=== PATIENT | male | born 1965 | race Caucasian/White ===

== ENCOUNTER 2022-01-06 01:17 | Emergency (ER) | payer OTHER, SELFPAY ==
--- NOTE | ~2022-01-06 | CT_ITS ---
EXAMINATION: CT ABDOMEN AND PELVIS WITHOUT CONTRAST CLINICAL INFORMATION: Left flank pain. History of kidney stones. COMPARISON: 03/06/2019 TECHNIQUE: Multidetector volumetric imaging was performed from the superior aspect of the liver through the pubic symphysis. Sagittal and coronal reformatted images were obtained on the technologist's workstation. This CT examination was performed using dose optimization techniques as appropriate, variously including the following: *Automated exposure control *Adjustment of mA and/or kV according to patient size (this includes techniques or standardized protocols for targeted exams where dose is matched to indication/reason for exam; i.e. extremities or head) *Use of iterative reconstruction technique DLP: 600 mGy-cm FINDINGS: LUNG BASES: The visualized lung bases are unremarkable. LIVER, GALLBLADDER, AND BILIARY TREE: The liver is normal in size, shape, and attenuation. No focal hepatic lesion or biliary ductal dilatation is present. The gallbladder is unremarkable with no evidence of radiopaque gallstones, gallbladder wall thickening, or obvious pericholecystic inflammatory changes. PANCREAS: Unremarkable. SPLEEN: Unremarkable. ADRENAL GLANDS: Unremarkable. KIDNEYS AND URETERS: The kidneys are normal in size, shape, and attenuation. Mild left hydroureteronephrosis. 0.5 cm calculus at the left ureterovesicular junction. There are 2 calculi at the lower pole of the right kidney, measuring up to 0.2 cm, 10 cm from the posterior axillary line. BLADDER: Unremarkable. GASTROINTESTINAL TRACT: The small and large bowel are unremarkable. The appendix is unremarkable. ABDOMINAL WALL: No significant hernia is appreciated. LYMPH NODES: Normal. VASCULAR: Unremarkable. PELVIC VISCERA: The prostate and seminal vesicles are unremarkable. OSSEOUS STRUCTURES: No acute or suspicious osseous abnormality. Mild degenerative changes of the spine. CT/CT abdomen pelvis wo IV con IMPRESSION: Mild left hydroureteronephrosis with a 0.5 cm calculus at the left ureterovesicular junction. Nonobstructing right lower pole renal calculi. Fleischner guidelines were followed.
[2022-01-06 01:24] VITALS: BP 125/76; PULSE 52; RESP 17; TEMP 36.7; O2SAT 99; BMI 26.4
[2022-01-06 01:38] LABS: Appearance Urine Cloudy; Color Urine Yellow; Glucose Urine UA Negative (Negative); Leukocyte Esterase Urine Trace (Negative); Nitrite Urine Negative (Negative); PH 5.5 (5.0-9.0); Specific Gravity - Urine >= 1.030 (1.005-1.025); UMIC TRIGGER UACC YES; Urine Blood Large (3+) (Negative); Urine Ketones Trace mg/dL (Negative); Urine Protein 30 (1+) mg/dL (Neg-Trace)
[2022-01-06 01:42] LABS: Bacteria Urine None Seen (None Seen); Hyaline Casts Urine 0-2 /LPF (0-2); RBC Urine >20 /HPF (0-2); Squamous Epithelial Cell Urine 0-2 /HPF (0-2); UACC Culture Trigger YES
--- NOTE | 2022-01-06 02:18 | ED.ABDPAIN ---
HPI - Abdominal Pain General Chief Complaint: Abdominal Pain Stated Complaint: kidney stone Time Seen by Provider: 01/06/22 02:04 Source: patient Mode of arrival: ambulatory Limitations: no limitations History of Present Illness HPI narrative: patient history of kidney stones never had lithotripsy note today left flank pain about 2 hours prior to arrival sharp in character radiating to the left testicle assist with nausea and vomiting no hematuria no fever or chills patient had urinary frequency for last few days Related Data Previous Rx's Medication Instructions Recorded oxycodone-acetaminophen 5 mg-325 1 tab PO Q6H PRN pain #20 tabs 01/06/22 mg tablet (Percocet) tamsulosin 0.4 mg capsule (Flomax) 0.4 mg PO BEDTIME #7 caps 01/06/22 Allergies Allergy/AdvReac Type Severity Reaction Status Date / Time No Known Allergies Allergy Verified 01/06/22 01:24 [No Known Allergies*] Review of Systems Review of Systems Yes all other systems are reviewed and are negative PMFSH Social History Social History Advance Directives: No Advance Directives Information Provided: No Physical Exam ED Vital Signs: Vital Signs - 24 hr 01/06/22 01:24 01/06/22 03:08 Temperature 98.1 F 98.6 F Pulse Rate 52 54 Respiratory Rate 17 18 Blood Pressure 125/76 116/64 Pulse Oximetry 99 100 Oxygen Delivery Method Room Air Room Air BMI result Body Mass Index 26.4 Appearance: Alert. Oriented X3. in moderate distress. Eyes: no pallor or icterus ENT: Pharynx normal. Oral Mucosa moist Neck: Normal inspection. Neck supple. CVS: Normal heart rate and rhythm. Pulses normal. Respiratory: No respiratory distress. Equal air entry bilateral, Abdomen: Soft and nontender. Bowel sounds are present, no mass palpable, L CVA tenderness Skin: Skin warm and dry. Normal skin color. Normal skin turgor. Extremities: No lower extremity edema. No calf tenderness Neuro: Oriented X 3. MDM - Abdominal Pain MDM Narrative Medical decision making narrative: patient with 0.5 cm UVJ stone with mild hydronephrosis feeling much better after IV fluids and pain medication discharge patient home on Flomax and pain medication advised to follow-up with urologist Differential Diagnosis Differential diagnosis: Likely calculus of kidney Medical Records Attestation: I reviewed the patient's medical records. Lab Data Attestation: I reviewed the patient's lab results. Result diagrams: 01/06/22 02:31 01/06/22 02:31 Labs: Lab Results 01/06/22 01/06/22 01/06/22 Range/Units 01:31 02:31 02:31 WBC 9.0 (4.8-10.8) X10*3/uL RBC 5.02 (4.60-5.80) X10*6/uL Hgb 15.0 (14.0-18.0) g/dl Hct 44.1 (42.0-52.0) % MCV 87.8 (80.0-98.0) fL MCH 29.9 (27.0-33.0) pg MCHC 34.0 (31.0-36.0) g/dl RDW 12.4 (11.0-16.0) % Plt Count 208 (160-400) X10*3/uL MPV 9.9 (9.4-12.4) fL Immature Gran % (Auto) 0.4 (0.0-0.4) % Neut % (Auto) 65.7 (45-73) % Lymph % (Auto) 22.2 (20-40) % [place] % (Auto) 9.3 (2-11) % Eos % (Auto) 2.0 (0-4) % Baso % (Auto) 0.4 (0-2) % Lymph # (Auto) 2.0 (1.2-4.9) X10*3/uL [place] # (Auto) 0.8 (0.1-1.2) X10*3/uL Eos # (Auto) 0.2 (0.0-0.4) X10*3/uL Baso # (Auto) 0.0 (0.0-0.2) X10*3/uL Abs Immat Gran (auto) 0.04 H (0.00-0.03) X10*3/uL Absolute Neuts (auto) 5.9 (2.0-8.3) x10*3/uL Absolute Nucleated RBC 0.000 (0.0-0.012) X10*3/uL Nucleated RBC % (auto) 0.0 (0.0-0.2) /100WBC Sodium 140 (135-145) mmol/L Potassium 3.8 (3.3-5.1) mmol/L Chloride 103 (96-108) mmol/L Carbon Dioxide 28 (22-29) mmol/L Anion Gap 13 (12-20) BUN 15 (9-16) mg/dL Creatinine 1.24 (0.5-1.4) mg/dL Estim Creat Clear Calc 72.5 Estimated GFR > 60 Random Glucose 136 H (60-115) mg/dL Calcium 8.8 (8.4-10.2) mg/dL Urine Color Yellow Urine Appearance Cloudy Urine pH 5.5 (5.0-9.0) Ur Specific [place] >= 1.030 H (1.005-1.025) Urine Protein 30 (1+) H (Neg-Trace) mg/dL Urine Glucose (UA) Negative (Negative) mg/dL Urine Ketones Trace (Negative) mg/dL Urine Blood Large (3+) H (Negative) Urine Nitrite Negative (Negative) Ur Leukocyte Esterase Trace H (Negative) Urine RBC >20 H (0-2) /HPF Urine WBC 6-10 H (0-5) /HPF Ur Squamous Epith Cells 0-2 (0-2) /HPF Urine Bacteria None Seen (None Seen) Hyaline Casts 0-2 (0-2) /LPF Discharge Plan Discharge Clinical Impression: Calculus of kidney Patient Disposition: Home, Self-Care Instructions: Kidney Stones (ED) Prescriptions: New oxycodone-acetaminophen [Percocet] 5-325 mg tablet 1 tab PO Q6H PRN (Reason: pain) Qty: 20 0RF Rx Instructions: Partial Fill upon patient request. tamsulosin [Flomax] 0.4 mg capsule 0.4 mg PO BEDTIME Qty: 7 0RF Referrals: Tristan Laurent MD [Physician] - 2 days Interventions: ED Discharge Assessment Last Done: 01/06/22 03:45
[2022-01-06] MEDS: Morphine Sulfate 4 MG/ML CARTRIDGE IVPUSH (02:33)
[2022-01-06 02:34] LABS: MANUAL DIFF FLAG NO
[2022-01-06] MEDS: 0.9 % Sodium Chloride 1,000 ML 999 ML IV (02:34)
[2022-01-06] MEDS: Ketorolac Tromethamine 30 MG/ML VIAL IVPUSH (02:34)
[2022-01-06] MEDS: ondansetron HCL 4 MG/2 ML VIAL IVPUSH (02:34)
[2022-01-06 02:35] LABS: Basophils Percent Auto 0.4 % (0-2); Eosinophils Absolute Auto 0.2 X10*3/uL (0.0-0.4); Hematocrit 44.1 % (42.0-52.0); Imm Gran Abs Auto 0.04 X10*3/uL (0.00-0.03); Imm Gran Pct Auto 0.4 % (0.0-0.4); Lymphocytes Percent Auto 22.2 % (20-40); Mean Corpuscular Hemoglobin 29.9 pg (27.0-33.0); Mean Corpuscular Volume 87.8 fL (80.0-98.0); Mean Platelet Volume 9.9 fL (9.4-12.4); Monocytes Absolute Auto 0.8 X10*3/uL (0.1-1.2); Monocytes Percent Auto 9.3 % (2-11); Neutrophils Absolute Auto 5.9 x10*3/uL (2.0-8.3); Neutrophils Percent Auto 65.7 % (45-73); Platelet Count 208 X10*3/uL (160-400); Red Blood Count 5.02 X10*6/uL (4.60-5.80); Red Cell Distribution Width 12.4 % (11.0-16.0)
[2022-01-06 02:51] LABS: Anion Gap 13 (12-20); Blood Urea Nitrogen 15 mg/dL (9-16); Calcium 8.8 mg/dL (8.4-10.2); Carbon Dioxide 28 mmol/L (22-29); Chloride 103 mmol/L (96-108); Creatinine Clr Calc Pharmacy 72.5; Estimated Glomerular Filt Rate > 60; Glucose Random 136 mg/dL (60-115); Potassium 3.8 mmol/L (3.3-5.1); Sodium 140 mmol/L (135-145)
[2022-01-06 03:08] VITALS: BP 116/64; PULSE 54; RESP 18; TEMP 37; O2SAT 100
[2022-01-06] MEDS: oxyCODONE HCl Immed Release 5 MG TABLET 10 MG PO (03:58)
[2022-01-06] MEDS: Tamsulosin HCL 0.4 MG CAPSULE PO (03:59)
== END 2022-01-06 04:02 | disposition home or self-care (01) ==
PROVIDERS: Emergency Provider Internal Medicine; PCP Internal Medicine
DX: N20.0 Calculus of kidney (principal); Z79.899 Other long term (current) drug therapy
CPT/HCPCS: 36415; 74176; 80048; 81001; 85025; 87086; 96361; 96374; 96375; 99284; J1885; J2270; J2405

== ENCOUNTER 2022-01-06 18:09 | Inpatient (IN) | payer OTHER, SELFPAY ==
--- NOTE | ~2022-01-06 | CT_ITS ---
EXAMINATION: CT ABDOMEN AND PELVIS WITHOUT CONTRAST CLINICAL INFORMATION: Question arthritis, pain COMPARISON: CT abdomen pelvis from earlier in the same day TECHNIQUE: Multidetector volumetric imaging was performed from the superior aspect of the liver through the pubic symphysis. Sagittal and coronal reformatted images were obtained on the technologist's workstation. This CT examination was performed using dose optimization techniques as appropriate, variously including the following: *Automated exposure control *Adjustment of mA and/or kV according to patient size (this includes techniques or standardized protocols for targeted exams where dose is matched to indication/reason for exam; i.e. extremities or head) *Use of iterative reconstruction technique DLP: 594 mGy-cm FINDINGS: LUNG BASES: Atelectasis in the dependent right lower lobe LIVER, GALLBLADDER, AND BILIARY TREE: The liver is normal in size, shape, and attenuation. No focal hepatic lesion or biliary ductal dilatation is present. The gallbladder is unremarkable with no evidence of radiopaque gallstones, gallbladder wall thickening, or obvious pericholecystic inflammatory changes. PANCREAS: Unremarkable. SPLEEN: Unremarkable. ADRENAL GLANDS: Unremarkable. KIDNEYS AND URETERS: Moderate left-sided hydroureteronephrosis with a 5 mm obstructing calculus at the left ureterovesicular junction. There is increased perinephric stranding around the left kidney compared with the exam from earlier this morning. Punctate nonobstructing calculi in the mid/lower pole of the right kidney and in the lower pole of the right kidney. No right-sided hydronephrosis. BLADDER: 5 mm calculus at the left ureteral fascicular junction. GASTROINTESTINAL TRACT: No bowel obstruction. Normal appendix. ABDOMINAL WALL: No significant hernia is appreciated. LYMPH NODES: Normal. VASCULAR: Unremarkable. PELVIC VISCERA: Unremarkable. OSSEOUS STRUCTURES: Unremarkable. CT/CT abdomen pelvis wo IV con IMPRESSION: There is an obstructing calculus at the left ureterovesicular junction, unchanged position from earlier exam there is moderate left-sided hydroureteronephrosis. There is increasing perinephric stranding on the left. Evaluation for pyelonephritis is limited due to lack of intravenous contrast. There are nonobstructing punctate calcifications in the mid/lower pole of the lower pole of the right kidney. Fleischner guidelines were followed.
[2022-01-06 18:44] VITALS: BP 125/59; PULSE 63; RESP 18; TEMP 36.7; O2SAT 98; BMI 26.4
[2022-01-06] MEDS: Ondansetron ODT 4 MG TAB.RAPDIS TRANSLINGU (19:20)
--- NOTE | 2022-01-06 19:40 | ED_ITS ---
HPI - Abdominal Pain General Chief Complaint: Abdominal Pain Stated Complaint: kidney stone, here 12 hrs ago Time Seen by Provider: 01/06/22 19:40 Source: patient Mode of arrival: ambulatory Limitations: no limitations History of Present Illness HPI narrative: 56-year-old male presents with worsening flank pain, nausea, vomiting, with known kidney stones diagnosed earlier today. Patient was evaluated at this [facility] at 01:00, diagnosed with bilateral kidney stones, given pain management and discharged home. Since patient arrived home, he has been taking the Percocet with poor effect, has had multiple episodes vomiting, and is unable to tolerate p.o. intake. He does not report fevers or chills, but feels fatigued, and the pain is intolerable. He has voided once today, but not since he has presented to the emergency department. MD elicited complaint: flank pain Pertinent past history: kidney stones Onset (ago): day(s) Pain Consistency: constant Severity: severe Pain scale (0-10): 10 Quality: stabbing and aching Radiation: none Exacerbating factors: eating and movement Relieving factors: nothing Associated symptoms: nausea, vomiting, chills and anorexia Treatments prior to arrival: NSAIDs and prescription analgesics Related Data Home Medications Medication Instructions Recorded Confirmed simvastatin 20 mg tablet 1 tab PO QPM 01/06/22 01/06/22 Previous Rx's Medication Instructions Recorded oxycodone-acetaminophen 5 mg-325 1 tab PO Q6H PRN pain #20 tabs 01/06/22 mg tablet (Percocet) prednisone 20 mg tablet 20 mg PO DAILY 5 days #5 tabs 01/06/22 tamsulosin 0.4 mg capsule 0.4 mg PO BEDTIME 14 days #7 caps 01/06/22 tamsulosin 0.4 mg capsule (Flomax) 0.4 mg PO BEDTIME #7 caps 01/06/22 Allergies Allergy/AdvReac Type Severity Reaction Status Date / Time No Known Allergies Allergy Verified 01/06/22 01:24 [No Known Allergies*] Review of Systems Review of Systems Constitutional: No Fever, No Chills ENT/Mouth: No sore throat Eyes: No Eye Pain, No Swelling, No Redness Cardiovascular: No Chest Pain, No SOB Respiratory: No Cough, No Sputum, No Wheezing Gastrointestinal: positive Nausea, positive Vomiting, No Diarrhea, positive abdominal pain Genitourinary: positive Dysuria, positive urinary frequency, positive Hematuria, positive Flank Pain, positive hesitancy Musculoskeletal: No joint pain, No Myalgias Skin: No Skin Lesions, No rash Neuro: No Weakness, No Numbness, No Headache Psych: No Anxiety/Panic, No Depression Heme/Lymph: No Bruising, No Lymphadenopathy Endocrine: No Polyuria, No Polydipsia Yes all other systems are reviewed and are negative [facility] Past Medical History Attestation statement: The following information was validated with the patient. Source: old records reviewed Medical History (Updated 01/06/22 @ 22:50 by Hank Mike MD) Hyperlipidemia Social History Social History Advance Directives: No Advance Directives Information Provided: Yes Physical Exam ED Vital Signs: Vital Signs - 24 hr 01/06/22 18:44 Temperature 98.0 F Pulse Rate 63 Respiratory Rate 18 Blood Pressure 125/59 L Pulse Oximetry 98 Oxygen Delivery Method Room Air BMI result Body Mass Index 26.4 Appearance: Alert. Oriented X3. Moderate distress. Eyes: Pupils equal, round and reactive to light. Sclera nonicteric. ENT: Pharynx normal. Dry mucous membranes. Neck: Normal inspection. Neck supple. CVS: Normal heart rate and rhythm. Pulses normal. Respiratory: No respiratory distress. Breath sounds normal. Abdomen: Soft and diffusely tender, bilateral CVA tenderness. Skin: Skin warm and dry. Normal skin color. Normal skin turgor. Extremities: No lower extremity edema. Gait well-balanced well coordinated. Neuro: No motor deficit. No sensory deficit. Cranial nerves 2-12 intact. Course Course Course Narrative: 56-year-old male diagnosed with kidney stones at this facility at 01:00 on 01/06/2022, presents with worsening symptoms. Is unable to tolerate p.o. intake, has been taking Percocet with poor effect and worsening pain. I did review his records, does have an obstructing kidney stone at the left UVJ, and punctate nonobstructing calculi to the right kidney. Patient is afebrile, appears nontoxic but fatigued, vital signs are stable and within. At this time I feel like it is appropriate to repeat lab values. Will give pain management with morphine, Zofran, and fluids. 20:00 lab values indicate an elevated white count of 15.3, H&H is 15.2 or 44.1 which is consistent with his values yesterday, white count yesterday was 9.0. At this time, pyelo is highly suspected, will order repeat CT scan of abdomen and pelvis. Will give ceftriaxone. 21:40 CT scan indicates obstructing calculus in unchanged position with moderate left-sided hydroureteronephrosis with increased perinephric stranding on the left. Nonobstructing punctate calcifications of the right kidney. I did discuss this with the hospitalist, hospitalist will reach out to Urology tomorrow. Patient will be admitted for pyelo. Consultations Consultation #1: Rashid Time: 22:00 MDM - Abdominal Pain Differential Diagnosis Differential diagnosis: Likely abdominal pain, acute appendicitis, calculus of kidney, constipation and diverticulitis Medical Records Attestation: I reviewed the patient's medical records. Lab Data Attestation: I reviewed the patient's lab results. Result diagrams: 01/06/22 19:55 01/06/22 19:55 Labs: Lab Results 01/06/22 01/06/22 Range/Units 19:55 19:55 WBC 15.3 H (4.8-10.8) X10*3/uL RBC 5.00 (4.60-5.80) X10*6/uL Hgb 15.2 (14.0-18.0) g/dl Hct 44.1 (42.0-52.0) % MCV 88.2 (80.0-98.0) fL MCH 30.4 (27.0-33.0) pg MCHC 34.5 (31.0-36.0) g/dl RDW 12.2 (11.0-16.0) % Plt Count 212 (160-400) X10*3/uL MPV 10.1 (9.4-12.4) fL Immature Gran % (Auto) 0.3 (0.0-0.4) % Neut % (Auto) 87.9 H (45-73) % Lymph % (Auto) 5.3 L (20-40) % [place] % (Auto) 6.2 (2-11) % Eos % (Auto) 0.1 (0-4) % Baso % (Auto) 0.2 (0-2) % Lymph # (Auto) 0.8 L (1.2-4.9) X10*3/uL [place] # (Auto) 1.0 (0.1-1.2) X10*3/uL Eos # (Auto) 0.0 (0.0-0.4) X10*3/uL Baso # (Auto) 0.0 (0.0-0.2) X10*3/uL Abs Immat Gran (auto) 0.05 H (0.00-0.03) X10*3/uL Absolute Neuts (auto) 13.5 H (2.0-8.3) x10*3/uL Absolute Nucleated RBC 0.000 (0.0-0.012) X10*3/uL Nucleated RBC % (auto) 0.0 (0.0-0.2) /100WBC Sodium 139 (135-145) mmol/L Potassium 4.8 D (3.3-5.1) mmol/L Chloride 104 (96-108) mmol/L Carbon Dioxide 25 (22-29) mmol/L Anion Gap 15 (12-20) BUN 17 H (9-16) mg/dL Creatinine 1.43 H (0.5-1.4) mg/dL Estim Creat Clear Calc 62.8 Estimated GFR 52 Random Glucose 117 H (60-115) mg/dL Calcium 9.1 (8.4-10.2) mg/dL Total Bilirubin 0.8 (0.0-1.0) mg/dL Direct Bilirubin 0.3 (0.0-0.5) mg/dL AST 19 (5-37) U/L ALT 14 (0-40) U/L Alkaline Phosphatase 78 (39-117) U/L Total Protein 6.5 (6.5-8.0) g/dL Albumin 4.1 (3.5-5.0) g/dL Lipase 20 (8-78) U/L Imaging Data CT scan - abdomen: Attestation: I personally reviewed and interpreted this imaging study as follows: Radiologist's impression: FINDINGS: LUNG BASES: Atelectasis in the dependent right lower lobe? LIVER, GALLBLADDER, AND BILIARY TREE: The liver is normal in size, shape, and attenuation. No focal hepatic lesion or biliary ductal dilatation is present. The gallbladder is unremarkable with no evidence of radiopaque gallstones, gallbladder wall thickening, or obvious pericholecystic inflammatory changes.? PANCREAS: Unremarkable.? SPLEEN: Unremarkable.? ADRENAL GLANDS: Unremarkable.? KIDNEYS AND URETERS: Moderate left-sided hydroureteronephrosis with a 5 mm obstructing calculus at the left ureterovesicular junction. There is increased perinephric stranding around the left kidney compared with the exam from earlier this morning. Punctate nonobstructing calculi in the mid/lower pole of the right kidney and in the lower pole of the right kidney. No right-sided hydronephrosis. BLADDER: 5 mm calculus at the left ureteral fascicular junction.? GASTROINTESTINAL TRACT: No bowel obstruction. Normal appendix. ABDOMINAL WALL: No significant hernia is appreciated.? LYMPH NODES: Normal. VASCULAR: Unremarkable. PELVIC VISCERA: Unremarkable.? OSSEOUS STRUCTURES: Unremarkable.? CT/CT abdomen pelvis wo IV con IMPRESSION: There is an obstructing calculus at the left ureterovesicular junction, unchanged position from earlier exam there is moderate left-sided hydroureteronephrosis. There is increasing perinephric stranding on the left. Evaluation for pyelonephritis is limited due to lack of intravenous contrast. ? There are nonobstructing punctate calcifications in the mid/lower pole of the lower pole of the right kidney.? ? Fleischner guidelines were followed. Discharge Plan Discharge Clinical Impression: Calculus of kidney, Pyelonephritis Patient Disposition: Admitted As Inpatient
--- OUTSIDE RECORDS SUMMARY | 2022-01-06 19:48 | XMS_ITS ---
:1965 Author Organization Hrainder Fournier MD Address [address] [place] [address] Care Team Providers Name Role Phone Harinder Fournier Unavailable Unavailable PROBLEMS Type Condition ICD9-CM [id number] Onset Condition SNOMED Cod e Code Code Dates Status Problem Family history of Z80.0 Active 42 3186774 malignant neoplasm of digestive organs Problem Ophthalmoplegic G43.B0 Active migraine, not intractable Problem Syncope and R55 Active 10315671 6 collapse Problem Mixed E78.2 Active 771777539 hyperlipidemia Problem Vitamin D E55.9 Active 78273813 deficiency, unspecified Problem Benign prostatic N40.1 Active 300 [id number] hyperplasia with lower urinary tract symptoms Problem Calculus of ureter N20.1 Active 3 5277901 ALLERGIES No Known Allergies ENCOUNTERS Encounter Location Date Diagnosis Harinder Fournier MD [address] [facility] [address] Dec, Acut e gastritis without [address] [place], [place] bleeding K29 .00 [address] Harinder Fournier MD [address] [facility] [address] Dec, [address] [place] [address] Harinder Fournier MD [address] [facility] [address] Nov, Sync ope and collapse R55 and [address] [place], [place] Calculus of ureter N20.1 [address] Harinder Fournier MD [address] [facility] [address] Nov, [address] [place] [address] Harinder Fournier MD [address] [facility] [address] Jun, [address] [place] [address] Harinder Fournier MD [address] [facility] [address] Mar, [address] [place] [address] Harinder Fournier MD [address] [facility] [address] Feb, 2021 [facility] for general adult [address] [place], [place] medical exam [place]ation [place] [address] abnormal finding s Z00.00 ; Encounter for sc reening for malignant neopla sm of colon Z12.11 ; Encount er for screening for ma lignant neoplasm of pros hyde Z12.5 ; Encounter for sc reening for cardiovascular d isorders Z13.6 ; Encounte r for immunization Z23 ; Encounter for antibody res ponse examination Z01. 84 ; Mixed hyperlipidemia E 78.2 ; Ophthalmoplegic migraine, not intractable G43. B0 ; Family history of malig nant neoplasm of digestive org ans Z80.0 and Vitamin D defici ency, unspecified E55. 9 Harinder Fournier MD [address] [facility] [address] Aug, [address] [place] [address] Harinder Fournier MD [address] Aug, Mixe d hyperlipidemia E78.2 [address] [place] [address] Harinder Fournier MD [address] [facility] [address] Feb, [address] [place] [address] Harinder Fournier MD [address] [facility] [address] Feb, [facility] for general adult [address] [place], [place] [address] abnormal finding s Z00.00 ; Encounter for sc reening for malignant neopla sm of colon Z12.11 ; Encount er for screening for ma lignant neoplasm of pros hyde Z12.5 ; Encounter for sc reening for cardiovascular d isorders Z13.6 ; Encounte r for immunization Z23 ; Encounter for antibody res ponse examination Z01. 84 ; Mixed hyperlipidemia E 78.2 ; Ophthalmoplegic migraine, not intractable G43. B0 ; Family history of malig nant neoplasm of digestive org ans Z80.0 and Vitamin D defici ency, unspecified E55. 9 Harinder Fournier MD [address] [facility] [address] Apr, Calc ulus of ureter N20.1 and [address] [place], [place] Ophthalmople gic migraine, not [phone] intractable G43. B0 Harinder Fournier MD [address] [facility] [address] Mar, [address] [place] [address] Harinder Fournier MD [address] [facility] [address] Feb, 2019 [facility] for general adult [address] [place], [place] [address] abnormal finding s Z00.00 ; Encounter for sc reening for malignant neopla sm of colon Z12.11 ; Encount er for screening for ma lignant neoplasm of pros hyde Z12.5 ; Encounter for sc reening for cardiovascular d isorders Z13.6 ; Encounte r for immunization Z23 ; Encounter for antibody res ponse examination Z01. 84 ; Mixed hyperlipidemia E 78.2 ; Family history of malig nant neoplasm of digestive org ans Z80.0 ; Vitamin D defici ency, unspecified E55. 9 ; Benign prostatic hyperp lasia with lower urinary tr act symptoms N40.1 and Calcul us of ureter N20.1 Harinder Fournier MD [address] [facility] [address] Sep, [address] [place] [address] Harinder Fournier MD [address] May, 2018 Calc ulus of ureter N20.1 and [address] [place], [place] Generalized abdominal pain [address] R10.84 Harinder Fournier MD [address] [facility] [address] Feb, 2018 [facility] for general adult [address] [place], [place] [address] abnormal finding s Z00.00 ; Mixed hyperlipid emia E78.2 ; Vitamin D defici ency, unspecified E55. 9 ; Encounter for screening fo r malignant neoplasm of pros hyde Z12.5 and Benign prost atic hyperplasia with lower urinary tract sy mptoms N40.1 Harinder Fournier MD [address] [facility] [address] Sep, Fami ly history of malignant [address] [place], [place] neoplasm of digestive organs [address] Z80.0 Harinder Fournier MD [address] [facility] [address] Aug, 2017 Mixe d hyperlipidemia E78.2 ; [address] [place], [place] Family histo ry of malignant [address] neoplasm of dige stive organs Z80.0 ; Encounte r for general adult medical ex amination without abnormal findings Z00.00 and Vitam in D deficiency, unsp ecified E55.9 Harinder Fournier MD [address] July, Mixe d hyperlipidemia E78.[address] [place] [address] Harinder Fournier MD [address] [facility] [address] Mar, Fami ly history of malignant [address] [place], [place] neoplasm of digestive organs [address] Z80.0 and Mixed hyperlipidemia E 78.2 Harinder Fournier MD [address] [facility] [address] Dec, 2016 [facility] for general adult [address] [place], [place] [address] abnormal finding s Z00.00 ; Encounter for im munization Z23 ; Mixed hype rlipidemia E78.2 and Family history of malignant neopla sm of digestive organs Z80.0 IMMUNIZATIONS Vaccine Route Administration Date Status [id number] Vaccine Unknown Feb 22, 2021 Adminis tered [id number]-90-Ckeckue Vaccine Unknown May 25, 2020 Adminis tered HXTES-80-Ebjfwbc Vaccine Unknown Apr 27, 2020 Adminis tered Influenza Unknown Dec 11, 2017 Administered Tdap IM Intramuscular Dec 21, 2016 Administered SOCIAL HISTORY Qualifiers Date Never Smoker REASON FOR REFERRAL FUNCTIONAL STATUS PLAN OF CARE Activity Details Follow Up 4 Months Reason:Gastritis Future Appointment Provider Name:Harinder Fournier , 2022-01-31 04:30:00 PM, [address] [place] [address], [address], [place], [address], Future Appointment Provider Name:Harinder Fournier 2022-03-16 08:30:00 AM, [address] [place] [address] [address], [place], [address], Future Test COMPLETE CBC WITH DIFF Future Test COMPLETE URINALYSIS 20220210 Future Test COMPREHENSIVE METABOLIC PANE L 20220210 Future Test LIPID PANEL W REFLEX TO DLDL 20220210 Future Test 25OH VITAMIN D 20220210 Future Test PSA 20220210 Future Test LIPID PANEL W REFLEX TO DLDL 89617284 Future Test COMPREHENSIVE METABOLIC PANE L 86182514 Future Test COMPLETE CBC WITH DIFF 92859 201 Future Test COMPLETE URINALYSIS 09239560 Future Test COMPREHENSIVE METABOLIC PANE L 68067838 Future Test LIPID PANEL W REFLEX TO DLDL 05560359 Future Test PSA 74363798 Future Test 25OH VITAMIN D 96737768 Future Test COMPREHENSIVE METABOLIC PANE L 39294530 Future Test LIPID PANEL W REFLEX TO DLDL 85145324 Future Test 25OH VITAMIN D 35481425 Future Test COMPLETE CBC WITH DIFF 72050 204 Future Test COMPLETE URINALYSIS 67206349 Future Test COMPREHENSIVE METABOLIC PANE L 20180213 Future Test LIPID PANEL W REFLEX TO DLDL 20180213 Pending Test KIDNEY STONE ANALYSIS Pending Test CT Scan : Urogram (Abdomen/P gauri) Pending Test 25OH VITAMIN D Pending Test COMPLETE CBC WITH DIFF Pending Test COMPLETE URINALYSIS Pending Test COMPREHENSIVE METABOLIC PANE L Pending Test LIPID PANEL W REFLEX TO DLDL Pending Test PSA Pending Test MYRIAD myRisk Pending Test COMPREHENSIVE METABOLIC PANE L Pending Test LIPID PANEL W REFLEX TO DLDL VITAL SIGNS Weight 191.4 lbs 2021-12-24 BMI 26.69 kg/m2 2021-12-24 Height 5 ft 11 in in 2021-12-24 Blood pressure systolic 122 mm Hg 2021-12-06 Blood pressure diastolic 70 mm Hg 2021-12-06 MEDICATIONS Medication Instructions Dosage Frequency Start End Duration Statu s Date Date Tamsulosin HCl Orally Once a 1 capsule 24h Feb, ctive 0.4 MG day 2018 Propranolol HCl TAKE 1 30 Active 10 MG TABLET BY MOUTH EVERY DAY Ubrelvy 50 mg Orally Every 1 Tablet Apr, Not- Takin day as needed 2019 g Vascepa 1 GM Orally Twice a 2 capsules 12h Feb, days A ctive day with meals 2020 Fluticasone APPLY TO 7 Active Propionate 0.05 ECZEMA % TWICE A DAY NEEDED FOR UP TO 5-7 DAYS AVOID FACE GROIN Omeprazole 20 Orally Once a 1 capsule 24h Dec, day(s) Active MG day 30 minutes 2021 before morning meal Simvastatin 20 TAKE 1 90 Active MG TABLET BY MOUTH EVERY DAY IN THE EVENING PROCEDURES Procedure Date Ordered Result Body Site No Show No Call July 13, 2017 Annual Depression Screening, 15 min Feb 25, 2021 TDAP VACCINE >7 IM Dec 21, 2016 Annual Alcohol Misuse Screening, 15 min Feb 25, 2021 Annual Alcohol Misuse Screening, 15 min Feb 26, 2020 Cardiovascular Screening Feb 25, 2021 IMMUNIZATION ADMIN Dec 21, 2016 Annual Depression Screening, 15 min Feb 26, 2020 RESULTS Name Result Date Reference Range CT Abdomen Pelvis WO Cont 2021-12-15 EBCT Coronary calcium score 2021-03-11 25OH VITAMIN D 2021-02-22 25OH VITAMIN D 33.4 (20-50) COMPLETE CBC WITH DIFF 2021-02-22 ABS. IMM GRAN 0.1 ABS. NRBC 0.0 AUTOMATED NRBC 0.0 BASO 0.5 (0-2) BASO # 0.0 (0.0-0.1) EO 2.1 (0-6) EO # 0.1 (0.0-0.4) HCT 47.7 (40.5-50.0) HGB 15.5 (13.7-17.1) IMM GRAN 0.8 LYMPH 31.1 (15-43) LYMPH # 1.9 (0.8-3.1) MCH 29.8 (27.0-34.0) MCHC 32.5 (33.0-37.0) MCV 91.6 (80.0-94.0) MONO# 0.7 (0.4-1.3) MONOCYTE 11.2 (4.5-10.5) MPV 10.3 (9.4-12.4) NEUT 54.3 (44-76) NEUT # 3.3 (1.3-7.0) PLT 215 (150-460) RBC 5.21 (4.70-6.10) RDW-SD 42.5 (<47.0) WBC 6.1 (4.0-11.0) COMPLETE URINALYSIS 2021-02-22 APPEAR/COLOR LIGHT YELLOW BACTERIA SLIGHT (NEG) MUCUS SLIGHT SP. GRAVITY 1.019 (1.002-1.030) URINE ALBUMIN NEGATIVE (NEG) URINE BILIRUBIN NEGATIVE (NEG) URINE GLUCOSE NEGATIVE (NEG) URINE HEMOGLOBIN NEGATIVE (NEG) URINE KETONES NEGATIVE (NEG) URINE LEUKOCYTE NEGATIVE (NEG) URINE NITRITE NEGATIVE (NEG) URINE PH 6.0 (5.0-8.0) URINE RBCs 2 (0-3) URINE WBCs 2 (0-5) UROBILINOGEN NORMAL (NORM) COMPREHENSIVE METABOLIC PANEL 2021-02-22 Duplicate order cancelled via interface LIPID PANEL W REFLEX TO DLDL 2021-02-22 Duplicate order cancelled via interface PSA 2021-02-22 PSA 0.3 (0-4) MMR (MEASLES, MUMPS, RUBELLA) 2021-02-22 IGG TITER MUMPS AB IGG POSITIVE RUBELLA IGG ANTIBODY POSITIVE RUBEOLA AB IGG POSITIVE COMPREHENSIVE METABOLIC PANEL 2021-02-22 AG RATIO 2.3 ALBUMIN 4.3 (3.4-4.8) ALK PHOS 86 (40-129) ALT 19 (0-41) ANION GAP 6 (4-17) AST 23 (0-40) BICARBONATE 30 (22-29) BILIRUBIN,TOTAL 0.8 (0-1.2) BUN 15 (6-20) CALCIUM 8.8 (8.6-10.5) CHLORIDE 103 (98-107) CREATININE 1.1 (0.7-1.2) ESTIMATED GFR CREATININE 74 GLUCOSE 96 (70-99) POTASSIUM 4.7 (3.6-5.2) SODIUM 139 (133-145) TOTAL PROTEIN 6.2 (6.2-8.2) LIPID PANEL W REFLEX TO DLDL 2021-02-22 CHOLESTEROL, TOTAL 174 (<200) CHOLESTEROL/HDL RATIO (CALC) 4.0 (<5 .0) HDL CHOL 44 (>39) LDL CHOLESTEROL, CALCULATED 113 (0-1 30) NON HDL CHOLESTEROL (CALC) 130 (<160 ) TRIGLYCERIDES 84 (<150) COMPLETE CBC WITH DIFF 2020-02-13 ABS. IMM GRAN 0.0 ABS. NRBC 0.0 AUTOMATED NRBC 0.0 BASO 0.3 (0-2) BASO # 0.0 (0.0-0.1) EO 0.5 (0-6) EO # 0.1 (0.0-0.4) HCT 47.8 (40.5-50.0) HGB 16.5 (13.7-17.1) IMM GRAN 0.3 LYMPH 13.1 (15-43) LYMPH # 1.5 (0.8-3.1) MCH 29.9 (27.0-34.0) MCHC 34.5 (33.0-37.0) MCV 86.8 (80.0-94.0) MONO# 0.9 (0.4-1.3) MONOCYTE 7.8 (4.5-10.5) MPV 10.3 (9.4-12.4) NEUT 78.0 (44-76) NEUT # 9.0 (1.3-7.0) PLT 230 (150-460) RBC 5.51 (4.70-6.10) RDW-SD 39.1 (<47.0) WBC 11.5 (4.0-11.0) COMPLETE URINALYSIS 2020-02-13 APPEAR/COLOR LIGHT YELLOW SP. GRAVITY 1.011 (1.002-1.030) URINE ALBUMIN NEGATIVE (NEG) URINE BILIRUBIN NEGATIVE (NEG) URINE GLUCOSE NEGATIVE (NEG) URINE HEMOGLOBIN NEGATIVE (NEG) URINE KETONES NEGATIVE (NEG) URINE LEUKOCYTE NEGATIVE (NEG) URINE NITRITE NEGATIVE (NEG) URINE PH 7.0 (5.0-8.0) URINE RBCs <1 (0-3) URINE WBCs 1 (0-5) UROBILINOGEN NORMAL (NORM) COMPREHENSIVE METABOLIC PANEL 2020-02-13 AG RATIO 2.1 ALBUMIN 4.7 (3.4-4.8) ALK PHOS 81 (40-129) ALT 53 (0-41) ANION GAP 12 (4-17) AST 37 (0-40) BICARBONATE 26 (22-29) BILIRUBIN,TOTAL 0.8 (0-1.2) BUN 13 (6-20) CALCIUM 9.4 (8.6-10.5) CHLORIDE 100 (98-107) CREATININE 1.2 (0.7-1.2) EST GFR 79 EST GFR NON 68 GLUCOSE 85 (70-99) POTASSIUM 5.2 (3.6-5.2) SODIUM 138 (133-145) TOTAL PROTEIN 6.9 (6.2-8.2) LIPID PANEL W REFLEX TO DLDL 2020-02-13 CHOLESTEROL, TOTAL 219 (<200) CHOLESTEROL/HDL RATIO (CALC) 5.1 (<5 .0) HDL CHOL 43 (>39) LDL CHOLESTEROL, CALCULATED 149 (0-1 30) NON HDL CHOLESTEROL (CALC) 176 (<160 ) TRIGLYCERIDES 137 (<150) PSA 2020-02-13 PSA 0.7 (0-4) 25OH VITAMIN D 2020-02-13 25OH VITAMIN D 33.7 (20-50) 25OH VITAMIN D 2019-02-11 25OH VITAMIN D 30.6 (20-50) COMPLETE CBC WITH DIFF 2019-02-11 ABS. IMM GRAN 0.0 ABS. NRBC 0.0 AUTOMATED NRBC 0.0 BASO 0.4 (0-2) BASO # 0.0 (0.0-0.1) EO 1.3 (0-6) EO # 0.1 (0.0-0.4) HCT 49.5 (40.5-50.0) HGB 16.5 (13.7-17.1) IMM GRAN 0.2 LYMPH 20.0 (15-43) LYMPH # 1.9 (0.8-3.1) MCH 29.9 (27.0-34.0) MCHC 33.3 (33.0-37.0) MCV 89.8 (80.0-94.0) MONO# 0.8 (0.4-1.3) MONOCYTE 8.7 (4.5-10.5) MPV 10.7 (9.4-12.4) NEUT 69.4 (44-76) NEUT # 6.6 (1.3-7.0) PLT 239 (150-460) RBC 5.51 (4.70-6.10) RDW-SD 41.1 (<47.0) WBC 9.5 (4.0-11.0) COMPLETE URINALYSIS 2019-02-11 APPEAR/COLOR YELLOW BACTERIA SLIGHT (NEG) MUCUS SLIGHT SP. GRAVITY 1.025 (1.002-1.030) URINE ALBUMIN NEGATIVE (NEG) URINE BILIRUBIN NEGATIVE (NEG) URINE GLUCOSE NEGATIVE (NEG) URINE HEMOGLOBIN NEGATIVE (NEG) URINE KETONES NEGATIVE (NEG) URINE LEUKOCYTE NEGATIVE (NEG) URINE NITRITE NEGATIVE (NEG) URINE PH 6.0 (5.0-8.0) URINE RBCs <1 (<3) URINE WBCs 4 (0-5) UROBILINOGEN NORMAL (NORM) WBC CLUMPS SLIGHT COMPREHENSIVE METABOLIC PANEL 2019-02-11 AG RATIO 1.9 ALBUMIN 4.6 (3.4-4.8) ALK PHOS 76 (40-129) ALT 24 (0-41) ANION GAP 8 (4-17) AST 25 (0-38) BICARBONATE 30 (22-29) BILIRUBIN,TOTAL 0.9 (0-1.2) BUN 20 (6-20) CALCIUM 9.4 (8.6-10.5) CHLORIDE 99 (98-107) CREATININE 1.2 (0.7-1.2) EST GFR 81 EST GFR NON 70 GLUCOSE 100 (70-99) POTASSIUM 5.0 (3.6-5.2) SODIUM 137 (133-145) TOTAL PROTEIN 7.0 (6.2-8.2) LIPID PANEL W REFLEX TO DLDL 2019-02-11 CHOLESTEROL, TOTAL 224 (<200) CHOLESTEROL/HDL RATIO (CALC) 4.5 (<5 .0) HDL CHOL 50 (>39) LDL CHOLESTEROL, CALCULATED 155 (0-1 30) NON HDL CHOLESTEROL (CALC) 174 (<160 ) TRIGLYCERIDES 93 (<150) PSA 2019-02-11 PSA 0.4 (0-4) Colonoscopy REASON FOR VISIT Insurance Providers [facility] Health Member Patient Patient Patient Patient Patient Subscriber Subscriber Subscriber Group Insurance Plan Plan Plan Plan ID Relationship Address Phone Name Date of ID Name Date of No Type Insurance Insurance Insurance Coverage to Subscriber Address Phone Name Dates [facility] [phone] [facility] [place] [id number] [place] 00 [facility] [address] [facility] [address] [place] [phone] [place] [id number] [phone] [facility] [address] [place] [address] [address] [place] [phone] [place] self [place] [id number] [facility] [id number] [facility] [address] MEDICAL (GENERAL) HISTORY Type Description Date Medical History Mixed hyperlipidemia Medical History Family history of malignant neoplasm of digestive organs Medical History Vitamin D deficiency, unspecified Medical History Calculus of ureter Surgical History Inguinal Hernia Repair, BILATERAL Surgical History ACL Repair, Right Hospitalization History Renal Calculus 05/2018 Hospitalization History Occular Migraine 02/2019
[2022-01-06] MEDS: 0.9 % Sodium Chloride 1,000 ML 999 ML IVCONT (20:03)
[2022-01-06 20:06] LABS: MANUAL DIFF FLAG NO
[2022-01-06] MEDS: Ketorolac Tromethamine 30 MG/ML VIAL IVPUSH (20:08)
[2022-01-06] MEDS: ondansetron HCL 4 MG/2 ML VIAL IVPUSH (20:08)
[2022-01-06] MEDS: Morphine Sulfate 4 MG/ML CARTRIDGE IVPUSH (20:09)
[2022-01-06 20:10] LABS: Basophils Percent Auto 0.2 % (0-2); Eosinophils Percent Auto 0.1 % (0-4); Hematocrit 44.1 % (42.0-52.0); Hemoglobin 15.2 g/dl (14.0-18.0); Imm Gran Abs Auto 0.05 X10*3/uL (0.00-0.03); Imm Gran Pct Auto 0.3 % (0.0-0.4); Lymphocytes Absolute Auto 0.8 X10*3/uL (1.2-4.9); Lymphocytes Percent Auto 5.3 % (20-40); Mean Corpuscular HGB Conc 34.5 g/dl (31.0-36.0); Mean Corpuscular Hemoglobin 30.4 pg (27.0-33.0); Mean Corpuscular Volume 88.2 fL (80.0-98.0); Mean Platelet Volume 10.1 fL (9.4-12.4); Monocytes Percent Auto 6.2 % (2-11); Neutrophils Absolute Auto 13.5 x10*3/uL (2.0-8.3); Neutrophils Percent Auto 87.9 % (45-73); Platelet Count 212 X10*3/uL (160-400); Red Cell Distribution Width 12.2 % (11.0-16.0); White Blood Count 15.3 X10*3/uL (4.8-10.8)
[2022-01-06 20:30] LABS: Alanine Aminotransferase 14 U/L (0-40); Albumin Level 4.1 g/dL (3.5-5.0); Alkaline Phosphatase 78 U/L (39-117); Anion Gap 15 (12-20); Aspartate Amino Transferase 19 U/L (5-37); Bilirubin Direct 0.3 mg/dL (0.0-0.5); Bilirubin Total 0.8 mg/dL (0.0-1.0); Blood Urea Nitrogen 17 mg/dL (9-16); Calcium 9.1 mg/dL (8.4-10.2); Carbon Dioxide 25 mmol/L (22-29); Chloride 104 mmol/L (96-108); Creatinine Clr Calc Pharmacy 62.8; Estimated Glomerular Filt Rate 52; Glucose Random 117 mg/dL (60-115); Lipase 20 U/L (8-78); Potassium 4.8 mmol/L (3.3-5.1); Sodium 139 mmol/L (135-145); Total Protein 6.5 g/dL (6.5-8.0)
[2022-01-06] MEDS: cefTRIAXone sodium 1 GM in 0.9 % Sodium Chloride 50 ML IV (21:22)
--- NOTE | 2022-01-06 22:41 | P.HPHOSP_ITS ---
History of Present Illness Date of Service: 01/06/22 Chief Complaint: Abdominal Pain This is a 56-year-old male with pertinent history of mixed hyperlipidemia who presents to the emergency department with worsening left flank pain. Patient states it started 1 day prior to presentation. He presented to the ER and was discharged on Percocet. Patient states the Percocet did not help the pain at all. Patient continued to have constant left flank pain radiating to the groin, progressive and without any relieving factors. Did have chills at home. Also had nausea and multiple episodes of nonbloody emesis. Denies fever. Denies burning micturition, hematuria but does have urinary urgency. Patient states he does have a history of kidney stones. Patient denies chest discomfort, palpitations, shortness of breath, changes in bowel habits In the emergency department, CT scan was concerning for obstructing calculus at left ureterovesical junction with moderate left-sided hydroureteronephrosis Review of Systems Constitutional: Constitutional: Reports chills Eyes: Eyes: Reports no additional eye complaints ENT: Reports system reviewed and no additional complaints, except as documented Cardiovascular: Cardiovascular: Reports no additional cardiovascular compla ints Respiratory: Respiratory: Reports no additional respiratory complaints Gastrointestinal: Gastrointestinal: Reports no additional gastrointestinal complaints Genitourinary: Genitourinary: Reports flank pain and Reports urinary frequency Musculoskeletal: Musculoskeletal: Reports no additional musculoskeletal complaints Neurologic: Reports system reviewed and no additional complaints, except as documented Psychiatric: Psychiatric: Reports no additional psychiatric complaints Endocrine: Endocrine: Reports no additional endocrine complaints Hematologic/Lymphatic: Hematologic/Lymphatic: Reports no additional hematologic/lymphatic complaints Allergic/Immunologic: Allergic/Immunologic: Reports no additional allergic/immunologic complaints [facility] Medical History (Updated 01/06/22 @ 22:50 by Hank Mike MD) Hyperlipidemia Social History Advance Directives: No Advance Directives Information Provided: Yes Meds Allergies Allergy/AdvReac Type Severity Reaction Status Date / Time No Known Allergies Allergy Verified 01/06/22 01:24 [No Known Allergies*] Active Medications: Current Medications Acetaminophen (Acetaminophen 325 Mg Tablet) 650 mg PO Q6H PRN PRN Reason: Pain, Mild (Pain Scale 1-3) Ceftriaxone Sodium 1 gm/ (Sodium Chloride) 50 mls @ 100 mls/hr IV DAILY ARLETTE Ketorolac Tromethamine (Ketorolac Tromethamine 30 Mg/Ml Vial) 30 mg IVPUSH Q6H PRN PRN Reason: Pain, Moderate (Pain Scale 4-6 Melatonin (Melatonin 3 Mg Tablet) 6 mg PO BEDTIME PRN PRN Reason: Insomnia Morphine Sulfate (Morphine Sulfate 4 Mg/Ml Cartridge) 4 mg IVPUSH Q4H PRN; Protocol PRN Reason: Pain, Severe (Pain Scale 7-10) Ondansetron HCl (Ondansetron Hcl 4 Mg/2 Ml Vial) 4 mg IVPUSH Q8H PRN PRN Reason: Nausea and Vomiting Pharmacy Consult (Consult Rx Perform Med Rec) 1 each MISCELLANE ONCE STA Stop: 01/06/22 21:00 Sodium Chloride (0.9 % Sodium Chloride Flush 3 Ml Syringe) 3 ml IVFLUSH QSHIFT [facility] Home Medications Medication Instructions Recorded Confirmed Last Taken Type simvastatin 20 mg tablet 1 tab PO QPM 01/06/22 01/06/22 01/05/22 History 20 mg Physical Exam Vital Signs and Narrative: Vital Signs: Last Vital Signs Temp 98.0 F 01/06/22 18:44 Pulse 63 01/06/22 18:44 Resp 18 01/06/22 18:44 BP 125/59 L 01/06/22 18:44 Pulse Ox 98 01/06/22 18:44 O2 Del Method 01/06/22 18:44 BMI result Body Mass Index 26.4 Middle-aged male lying in bed in no distress Neck supple, no JVD Regular rate and rhythm, S1-S2 heard Regular breath sounds bilaterally, no wheezing or crackles appreciated Abdomen with left flank CVA tenderness, no guarding, no rigidity, no rebound tenderness Patient is awake, alert and oriented to self, place, time and person ; no focal motor deficit Psych: Normal mood No pedal edema Results Labs CBC and Chem 7: 01/06/22 19:55 01/06/22 19:55 Labs: Laboratory Results - last 24 hr 01/06/22 01/06/22 19:55 19:55 MCV 88.2 MCH 30.4 MCHC 34.5 RDW 12.2 Plt Count 212 MPV 10.1 Immature Gran % (Auto) 0.3 Neut % (Auto) 87.9 H Lymph % (Auto) 5.3 L [place] % (Auto) 6.2 Eos % (Auto) 0.1 Baso % (Auto) 0.2 Lymph # (Auto) 0.8 L [place] # (Auto) 1.0 Eos # (Auto) 0.0 Baso # (Auto) 0.0 Abs Immat Gran (auto) 0.05 H Absolute Neuts (auto) 13.5 H Absolute Nucleated RBC 0.000 Nucleated RBC % (auto) 0.0 Anion Gap 15 Estim Creat Clear Calc 62.8 Estimated GFR 52 Random Glucose 117 H Calcium 9.1 Total Bilirubin 0.8 Direct Bilirubin 0.3 AST 19 ALT 14 Alkaline Phosphatase 78 Total Protein 6.5 Albumin 4.1 Lipase 20 Imaging Radiologist's Impressions: Impressions Abdomen/Pelvis CT 01/06/22 21:09 IMPRESSION: There is an obstructing calculus at the left ureterovesicular junction, unchanged position from earlier exam there is moderate left-sided hydroureteronephrosis. There is increasing perinephric stranding on the left. Evaluation for pyelonephritis is limited due to lack of intravenous contrast. There are nonobstructing punctate calcifications in the mid/lower pole of the lower pole of the right kidney. Fleischner guidelines were followed. Assessment and Plan (1) Calculus of kidney: Status: Acute (2) Pyelonephritis: Status: Acute (3) Obstructive uropathy: Status: Acute (4) Hydronephrosis: Status: Acute (5) Hyperlipidemia: Status: Acute Plan This is a 56-year-old male with pertinent history of mixed hyperlipidemia who presents to the emergency department with worsening left flank pain. #. Acute symptomatic nephrolithiasis -due to obstructing calculus at left ureterovesical junction with moderate left- sided hydroureteronephrosis. Cannot rule out pyelonephritis. Will admit patient with IV fluid resuscitation. Pain control with IV morphine p.r.n.. Initiating IV Rocephin empirically. Consulted Urology, appreciate assistance. UA pending. Initiating Flomax #. Mixed hyperlipidemia -on statin DVT prophylaxis: Holding anticoagulation until surgical evaluation Diet: NPO Full code Will admit as inpatient for management of obstructive uropathy. Urology consult pending for possible intervention Quality Stroke Does the patient have a stroke diagnosis?: No VTE Prior VTE?: No VTE Risk Level:: Medical - low VTE Device Contraindication: Treatment Not Indicated VTE Drug Contraindication: Treatment Not Indicated
[2022-01-07] VITALS (7 sets, daily range): BP systolic 116–142; BP diastolic 56–77; PULSE 52–68; RESP 17–18; TEMP 36.6–37.2; O2SAT 96–99
[2022-01-07] MEDS: 0.9 % Sodium Chloride Flush 3 ML SYRINGE IVFLUSH (04:31)
--- NOTE | 2022-01-07 04:33 | PC.NURSE ---
PT VSS, no pain reported, Call aly with in reach, PT resting quietly, PT refused pm Flomax and stated, I took that already today at home. MD Mike notified, no new orders.
[2022-01-07 06:33] LABS: MANUAL DIFF FLAG NO
[2022-01-07 06:40] LABS: Basophils Percent Auto 0.4 % (0-2); Eosinophils Absolute Auto 0.1 X10*3/uL (0.0-0.4); Hematocrit 40.2 % (42.0-52.0); Hemoglobin 13.7 g/dl (14.0-18.0); Imm Gran Abs Auto 0.03 X10*3/uL (0.00-0.03); Imm Gran Pct Auto 0.3 % (0.0-0.4); Lymphocytes Absolute Auto 1.8 X10*3/uL (1.2-4.9); Lymphocytes Percent Auto 16.4 % (20-40); Mean Corpuscular HGB Conc 34.1 g/dl (31.0-36.0); Mean Platelet Volume 10.3 fL (9.4-12.4); Monocytes Absolute Auto 1.1 X10*3/uL (0.1-1.2); Monocytes Percent Auto 9.9 % (2-11); Platelet Count 190 X10*3/uL (160-400); Red Blood Count 4.57 X10*6/uL (4.60-5.80); Red Cell Distribution Width 12.4 % (11.0-16.0); White Blood Count 11.1 X10*3/uL (4.8-10.8)
[2022-01-07 07:24] LABS: Anion Gap 13 (12-20); Blood Urea Nitrogen 16 mg/dL (9-16); Calcium 8.3 mg/dL (8.4-10.2); Carbon Dioxide 25 mmol/L (22-29); Chloride 104 mmol/L (96-108); Creatinine Clr Calc Pharmacy 66.1; Estimated Glomerular Filt Rate 55; Glucose Random 95 mg/dL (60-115); Sodium 138 mmol/L (135-145)
--- NOTE | 2022-01-07 08:28 | PHA.MEDREC ---
Pharmacy Consult ? Medication Reconciliation Pharmacy has completed the medication reconciliation.
--- NOTE | 2022-01-07 08:37 | PM.UROCN ---
History of Present Illness Consult details Consult date: 01/07/22 Narrative: 56-year-old male with pertinent history of mixed hyperlipidemia who presents to the emergency department with worsening left flank pain.? Patient states it started 1 day prior to presentation.? He presented to the ER and was discharged on Percocet.? Patient states the Percocet did not help the pain at all.? Patient continued to have constant left flank pain radiating to the groin, progressive and without any relieving factors.? Did have chills at home.? Also had nausea and multiple episodes of nonbloody emesis.? Denies fever.? Denies burning micturition, hematuria but does have urinary urgency.? Patient states he does have a history of kidney stones.? Patient denies chest discomfort, palpitations, shortness of breath, changes in bowel habits. In the emergency department, CT scan was concerning for obstructing calculus at left ureterovesical junction with moderate left-sided hydroureteronephrosis. Pertinent Findings: CT--KIDNEYS AND URETERS: Moderate left-sided hydroureteronephrosis with a 5 mm obstructing calculus at the left ureterovesicular junction. There is increased perinephric stranding around the left kidney compared with the exam from earlier this morning. Punctate nonobstructing calculi in the mid/lower pole of the right kidney and in the lower pole of the right kidney. No right-sided hydronephrosis. BLADDER: 5 mm calculus at the left ureteral fascicular junction.? Review of Systems Review of Systems: 10 point ROS negative other than stated in [facility] Past Medical History Medical History Hyperlipidemia Social History Social History Advance Directives: No Advance Directives Information Provided: Yes service: No Meds Allergies Allergy/AdvReac Type Severity Reaction Status Date / Time No Known Allergies Allergy Verified 01/06/22 01:24 [No Known Allergies*] Active Medications: Current Medications Acetaminophen (Acetaminophen 325 Mg Tablet) 650 mg PO Q6H PRN PRN Reason: Pain, Mild (Pain Scale 1-3) Ceftriaxone Sodium 1 gm/ (Sodium Chloride) 50 mls @ 100 mls/hr IV Q24H [facility] Melatonin (Melatonin 3 Mg Tablet) 6 mg PO BEDTIME PRN PRN Reason: Insomnia Morphine Sulfate (Morphine Sulfate 4 Mg/Ml Cartridge) 4 mg IVPUSH Q4H PRN; Protocol PRN Reason: Pain, Severe (Pain Scale 7-10) Ondansetron HCl (Ondansetron Hcl 4 Mg/2 Ml Vial) 4 mg IVPUSH Q8H PRN PRN Reason: Nausea and Vomiting Sodium Chloride (0.9 % Sodium Chloride Flush 3 Ml Syringe) 3 ml IVFLUSH QSHIFT [facility] Last Admin: 01/07/22 07:17 Dose: Not Given Tamsulosin HCl (Tamsulosin Hcl 0.4 Mg Capsule) 0.4 mg PO BEDTIME [facility] Last Admin: 01/07/22 00:19 Dose: Not Given Home Medications Medication Instructions Recorded Confirmed Last Taken Type simvastatin 20 mg tablet 1 tab PO DAILY 01/06/22 01/07/22 01/05/22 History 20 mg omeprazole 20 mg capsule,delayed 1 cap PO DAILY@0630 01/07/22 01/07/22 01/06/22 History release Physical Exam Vital Signs: Vital Signs: Last Vital Signs Temp 98.9 F 01/07/22 08:22 Pulse 58 01/07/22 08:22 Resp 18 01/07/22 08:22 BP 116/62 01/07/22 08:22 Pulse Ox 97 01/07/22 08:22 O2 Del Method 01/07/22 08:22 BMI result Body Mass Index 26.4 Const: General: healthy appearing, no acute distress and well developed Orientation/consciousness: patient oriented x3 HEENT: Head: Yes normocephalic and Yes atraumatic Eyes: Conjunctivae: conjunctivae normal Neck: Neck: Yes normal visual inspection Chest: Chest palpation & inspection: normal inspection of the chest Resp: Effort & Inspection: normal respiratory effort Cardio: Rate: regular rate GI: Inspection: Yes normal to inspection Palpation (GI): Soft to palpation : General: Yes no CVA tenderness Back/Spine/Pelvis: Back: no CVA tenderness Skin: General skin exam: no rashes or lesions noted Neuro: General: patient oriented x3 Extrem: General: No pedal edema Psych: Appearance: grossly normal Affect: normal affect Results Labs Result diagrams: 01/07/22 06:06 01/07/22 06:06 Labs: Abnormal lab results 01/06/22 01/06/22 01/07/22 Range/Units 19:55 19:55 06:06 WBC 15.3 H 11.1 H (4.8-10.8) X10*3/uL RBC 4.57 L (4.60-5.80) X10*6/uL Hgb 13.7 L (14.0-18.0) g/dl Hct 40.2 L (42.0-52.0) % Neut % (Auto) 87.9 H (45-73) % Lymph % (Auto) 5.3 L 16.4 L (20-40) % Lymph # (Auto) 0.8 L (1.2-4.9) X10*3/uL Abs Immat Gran (auto) 0.05 H (0.00-0.03) X10*3/uL Absolute Neuts (auto) 13.5 H (2.0-8.3) x10*3/uL BUN 17 H (9-16) mg/dL Creatinine 1.43 H (0.5-1.4) mg/dL Random Glucose 117 H (60-115) mg/dL Calcium (8.4-10.2) mg/dL 01/07/22 Range/Units 06:06 WBC (4.8-10.8) X10*3/uL RBC (4.60-5.80) X10*6/uL Hgb (14.0-18.0) g/dl Hct (42.0-52.0) % Neut % (Auto) (45-73) % Lymph % (Auto) (20-40) % Lymph # (Auto) (1.2-4.9) X10*3/uL Abs Immat Gran (auto) (0.00-0.03) X10*3/uL Absolute Neuts (auto) (2.0-8.3) x10*3/uL BUN (9-16) mg/dL Creatinine (0.5-1.4) mg/dL Random Glucose (60-115) mg/dL Calcium 8.3 L D (8.4-10.2) mg/dL Short CBC 01/06/22 01/07/22 Range/Units 19:55 06:06 WBC 15.3 H 11.1 H (4.8-10.8) X10*3/uL Hgb 15.2 13.7 L (14.0-18.0) g/dl Hct 44.1 40.2 L (42.0-52.0) % Plt Count 212 190 (160-400) X10*3/uL BMP 01/06/22 01/07/22 19:55 06:06 Sodium 139 138 Potassium 4.8 D 4.0 Chloride 104 104 Carbon Dioxide 25 25 BUN 17 H 16 Creatinine 1.43 H 1.36 Calcium 9.1 8.3 L D Liver Function 01/06/22 Range/Units 19:55 Total Bilirubin 0.8 (0.0-1.0) mg/dL Direct Bilirubin 0.3 (0.0-0.5) mg/dL AST 19 (5-37) U/L ALT 14 (0-40) U/L Alkaline Phosphatase 78 (39-117) U/L Albumin 4.1 (3.5-5.0) g/dL Imaging Abdomen CT scan report/results: report reviewed and image reviewed Additional studies: Date of Service: 01/06/22 EXAMINATION: CT ABDOMEN AND PELVIS WITHOUT CONTRAST? CLINICAL INFORMATION: Question arthritis, pain? COMPARISON: CT abdomen pelvis from earlier in the same day? FINDINGS: LUNG BASES: Atelectasis in the dependent right lower lobe? LIVER, GALLBLADDER, AND BILIARY TREE: The liver is normal in size, shape, and attenuation. No focal hepatic lesion or biliary ductal dilatation is present. The gallbladder is unremarkable with no evidence of radiopaque gallstones, gallbladder wall thickening, or obvious pericholecystic inflammatory changes.? PANCREAS: Unremarkable.? SPLEEN: Unremarkable.? ADRENAL GLANDS: Unremarkable.? KIDNEYS AND URETERS: Moderate left-sided hydroureteronephrosis with a 5 mm obstructing calculus at the left ureterovesicular junction. There is increased perinephric stranding around the left kidney compared with the exam from earlier this morning. Punctate nonobstructing calculi in the mid/lower pole of the right kidney and in the lower pole of the right kidney. No right-sided hydronephrosis. BLADDER: 5 mm calculus at the left ureteral fascicular junction.? GASTROINTESTINAL TRACT: No bowel obstruction. Normal appendix. ABDOMINAL WALL: No significant hernia is appreciated.? LYMPH NODES: Normal. VASCULAR: Unremarkable. PELVIC VISCERA: Unremarkable.? OSSEOUS STRUCTURES: Unremarkable.? IMPRESSION: There is an obstructing calculus at the left ureterovesicular junction, unchanged position from earlier exam there is moderate left-sided hydroureteronephrosis. There is increasing perinephric stranding on the left. Evaluation for pyelonephritis is limited due to lack of intravenous contrast. ? There are nonobstructing punctate calcifications in the mid/lower pole of the lower pole of the right kidney.? Assessment and Plan (1) Calculus of kidney: Status: Acute (2) Pyelonephritis: Status: Acute (3) Obstructive uropathy: Status: Acute (4) Hydronephrosis: Status: Acute Plan Right Kidney nonobstructing renal stones Left Hydronephrosis secondary to obstructing distal ureteral stone, 5 mm ureteral stone at ureterovesical junction, currently patient is asymptomatic has not required pain medication for several hours and nontender on abdominal exam. I have discussed with the patient that if pain returns we will add him on for ureteroscopy today otherwise will observe and continue Flomax and IV fluid hydration. Pyelonephritis has received IV Rocephin Procedures Date of Service Date of Service: 01/07/22
[2022-01-07] MEDS: Lactated Ringers 1,000 ML 100 ML IVCONT ×2 (09:03→21:10)
[2022-01-07 09:21] LABS: Appearance Urine Clear; Color Urine Yellow; Glucose Urine UA Negative (Negative); Leukocyte Esterase Urine Negative (Negative); Nitrite Urine Negative (Negative); PH 5.5 (5.0-9.0); UMIC TRIGGER UACC YES; Urine Blood Moderate (2+) (Negative); Urine Ketones Negative (Negative); Urine Protein Negative (Neg-Trace)
[2022-01-07 09:31] LABS: RBC Urine 0-2 /HPF (0-2); Squamous Epithelial Cell Urine 0-2 /HPF (0-2); WBC Urine 0-5 /HPF (0-5)
[2022-01-07 09:32] LABS: Bacteria Urine None Seen (None Seen); Hyaline Casts Urine 0-2 /LPF (0-2)
--- NOTE | 2022-01-07 10:19 | PC.NURSE ---
report given to sss
--- NOTE | 2022-01-07 10:20 | HO.PM.IMPN ---
Subjective Subjective Date of Service: 01/07/22 Interval History: seen and examined this AM reports resolution of his pain denies any dysuria / flank pain Review of Systems negative except HPI Physical Exam Vital Signs: Vital Signs: Last Vital Signs Temp 98.9 F 01/07/22 08:22 Pulse 58 01/07/22 08:22 Resp 18 01/07/22 08:22 BP 116/62 01/07/22 08:22 Pulse Ox 97 01/07/22 08:22 O2 Del Method 01/07/22 08:22 BMI result Body Mass Index 26.4 Const: Other: General - no acute distress, appears comfortable Cardiovascular - regular rate and rhythm, S1-S2 Lungs - normal respiratory effort, clear to auscultation bilaterally, no wheezing Abdomen - soft, nontender, no rebound or guarding Extremities - no edema bilaterally Neuro - awake and alert, no focal deficits Objective Data Active Medications Acetaminophen (Acetaminophen 325 Mg Tablet) 650 mg PO Q6H PRN PRN Reason: Pain, Mild (Pain Scale 1-3) Ceftriaxone Sodium 1 gm/ (Sodium Chloride) 50 mls @ 100 mls/hr IV Q24H [facility] Lactated Ringer's (Lr) 1,000 mls @ 100 mls/hr IVCONT .Q10H [facility] Stop: 01/08/22 04:44 Last Admin: 01/07/22 09:03 Dose: 100 mls/hr Documented By: RAMESH Melatonin (Melatonin 3 Mg Tablet) 6 mg PO BEDTIME PRN PRN Reason: Insomnia Morphine Sulfate (Morphine Sulfate 4 Mg/Ml Cartridge) 4 mg IVPUSH Q4H PRN; Protocol PRN Reason: Pain, Severe (Pain Scale 7-10) Ondansetron HCl (Ondansetron Hcl 4 Mg/2 Ml Vial) 4 mg IVPUSH Q8H PRN PRN Reason: Nausea and Vomiting Sodium Chloride (0.9 % Sodium Chloride Flush 3 Ml Syringe) 3 ml IVFLUSH QSHIFT [facility] Last Admin: 01/07/22 09:03 Dose: Not Given Documented By: RAMESH Non-Admin Reason: IV Running Tamsulosin HCl (Tamsulosin Hcl 0.4 Mg Capsule) 0.4 mg PO BEDTIME [facility] Last Admin: 01/07/22 00:19 Dose: Not Given Documented By: RYLAND Non-Admin Reason: Patient Refused Labs CBC & Chem 7: 01/07/22 06:06 01/07/22 06:06 Labs: Laboratory Results - last 24 hr 01/06/22 01/06/22 01/07/22 19:55 19:55 06:06 MCV 88.2 88.0 MCH 30.4 30.0 MCHC 34.5 34.1 RDW 12.2 12.4 Plt Count 212 190 MPV 10.1 10.3 Immature Gran % (Auto) 0.3 0.3 Neut % (Auto) 87.9 H 72.0 Lymph % (Auto) 5.3 L 16.4 L [place] % (Auto) 6.2 9.9 Eos % (Auto) 0.1 1.0 Baso % (Auto) 0.2 0.4 Lymph # (Auto) 0.8 L 1.8 [place] # (Auto) 1.0 1.1 Eos # (Auto) 0.0 0.1 Baso # (Auto) 0.0 0.0 Abs Immat Gran (auto) 0.05 H 0.03 Absolute Neuts (auto) 13.5 H 8.0 Absolute Nucleated RBC 0.000 0.000 Nucleated RBC % (auto) 0.0 0.0 Anion Gap 15 Estim Creat Clear Calc 62.8 Estimated GFR 52 Random Glucose 117 H Calcium 9.1 Total Bilirubin 0.8 Direct Bilirubin 0.3 AST 19 ALT 14 Alkaline Phosphatase 78 Total Protein 6.5 Albumin 4.1 Lipase 20 Urine Color Urine Appearance Urine pH Ur Specific [place] Urine Protein Urine Glucose (UA) Urine Ketones Urine Blood Urine Nitrite Ur Leukocyte Esterase Urine RBC Urine WBC Ur Squamous Epith Cells Urine Bacteria Hyaline Casts 01/07/22 01/07/22 06:06 09:07 MCV MCH MCHC RDW Plt Count MPV Immature Gran % (Auto) Neut % (Auto) Lymph % (Auto) [place] % (Auto) Eos % (Auto) Baso % (Auto) Lymph # (Auto) [place] # (Auto) Eos # (Auto) Baso # (Auto) Abs Immat Gran (auto) Absolute Neuts (auto) Absolute Nucleated RBC Nucleated RBC % (auto) Anion Gap 13 Estim Creat Clear Calc 66.1 Estimated GFR 55 Random Glucose 95 Calcium 8.3 L D Total Bilirubin Direct Bilirubin AST ALT Alkaline Phosphatase Total Protein Albumin Lipase Urine Color Yellow Urine Appearance Clear Urine pH 5.5 Ur Specific [place] 1.010 Urine Protein Negative Urine Glucose (UA) Negative Urine Ketones Negative Urine Blood Moderate (2+) H Urine Nitrite Negative Ur Leukocyte Esterase Negative Urine RBC 0-2 Urine WBC 0-5 Ur Squamous Epith Cells 0-2 Urine Bacteria None Seen Hyaline Casts 0-2 Assessment and Plan (1) Hydronephrosis: Status: Acute (2) Obstructive uropathy: Status: Acute Plan 56 yo M with a PMH of HLD who presented to [facility] ED x 2 on 01/06 for flank pain. He was discharged home initially with outpatient urology f/u. However, he was unable to tolerate PO intake and his pain worsened. He returned back to the ED and is admitted for obstructive uropathy / nephrolithiasis. 1. Obstructive uropathy / nephrolithiasis 1a. Cannot rule out pyelonephritis Clinically pain free this AM; question of he passed stone Urology on consult, will await this input Keep NPO and continue IVF Continue empiric rocephin 2. HLD statin Full Code DVT pptx - low risk, early ambulation Dispo: Possible home today if no urological intervention required Quality Stroke Does the patient have a stroke diagnosis?: No VTE Prior VTE?: No VTE Risk Level:: Medical - low VTE Device Contraindication: Treatment Not Indicated VTE Drug Contraindication: Treatment Not Indicated
--- NOTE | 2022-01-07 10:26 | MHC.CM.PN ---
met with pt who is working and independent dc plan home no servyasis
--- NOTE | 2022-01-07 12:40 | PC.NURSE ---
patient a&ox3, pt spoke with surgeon and it was decided that the procedure would be placed on hold, pt would spend another night in the hospital and Dr. Laurent would come to see the patient tomm to re-evaluate the situation. urrently pt denying the need for pain medication, ivf running per order, pt independent/steady on feet, call aly within reach, will continue to monitor.
[2022-01-07 12:51] LABS: COVID-19 Test Negative (Negative); IDNOW Serial# 16C4AD1C
[2022-01-07] MEDS: cefTRIAXone sodium 1 GM in 0.9 % Sodium Chloride 50 ML IV (20:28)
[2022-01-07] MEDS: Tamsulosin HCL 0.4 MG CAPSULE PO (20:40)
[2022-01-08 03:49] VITALS: BP 119/66; PULSE 50; RESP 18; TEMP 36.4; O2SAT 97
[2022-01-08 07:25] VITALS: BP 111/69; PULSE 52; RESP 18; TEMP 36.7; O2SAT 95
--- NOTE | 2022-01-08 08:00 | P.PNIM_ITS ---
Subjective Subjective Date of Service: 01/08/22 Physical Exam Vital Signs: Vital Signs: Last Vital Signs Temp 98.1 F 01/08/22 07:25 Pulse 52 01/08/22 07:25 Resp 18 01/08/22 07:25 BP 111/69 01/08/22 07:25 Pulse Ox 95 01/08/22 07:25 O2 Del Method 01/08/22 07:25 BMI result Body Mass Index 26.4 Objective Data Active Medications Acetaminophen (Acetaminophen 325 Mg Tablet) 650 mg PO Q6H PRN PRN Reason: Pain, Mild (Pain Scale 1-3) Ceftriaxone Sodium 1 gm/ (Sodium Chloride) 50 mls @ 100 mls/hr IV Q24H [facility] Last Infusion: 01/07/22 21:15 Dose: 0 mls/hr Documented By: JOSE DE JESUS Melatonin (Melatonin 3 Mg Tablet) 6 mg PO BEDTIME PRN PRN Reason: Insomnia Morphine Sulfate (Morphine Sulfate 4 Mg/Ml Cartridge) 4 mg IVPUSH Q4H PRN; Pr otocol PRN Reason: Pain, Severe (Pain Scale 7-10) Ondansetron HCl (Ondansetron Hcl 4 Mg/2 Ml Vial) 4 mg IVPUSH Q8H PRN PRN Reason: Nausea and Vomiting Sodium Chloride (0.9 % Sodium Chloride Flush 3 Ml Syringe) 3 ml IVFLUSH QSHIFT [facility] Last Admin: 01/08/22 00:00 Dose: Not Given Documented By: JAMEL Non-Admin Reason: IV Running Tamsulosin HCl (Tamsulosin Hcl 0.4 Mg Capsule) 0.4 mg PO BEDTIME [facility] Last Admin: 01/07/22 20:40 Dose: 0.4 mg Documented By: JOSE DE JESUS Labs CBC & Chem 7: 01/07/22 06:06 01/07/22 06:06 Labs: Laboratory Results - last 24 hr 01/07/22 01/07/22 09:07 12:25 Urine Color Yellow Urine Appearance Clear Urine pH 5.5 Ur Specific [place] 1.010 Urine Protein Negative Urine Glucose (UA) Negative Urine Ketones Negative Urine Blood Moderate (2+) H Urine Nitrite Negative Ur Leukocyte Esterase Negative Urine RBC 0-2 Urine WBC 0-5 Ur Squamous Epith Cells 0-2 Urine Bacteria None Seen Hyaline Casts 0-2 COVID-19 ([facility]) Negative COVID-19 Clin Com See Note Quality Stroke Does the patient have a stroke diagnosis?: No VTE Prior VTE?: No VTE Risk Level:: Medical - low VTE Device Contraindication: Treatment Not Indicated VTE Drug Contraindication: Treatment Not Indicated
[2022-01-08] MEDS: 0.9 % Sodium Chloride Flush 3 ML SYRINGE IVFLUSH (08:40)
[2022-01-08 08:52] LABS: MANUAL DIFF FLAG NO
[2022-01-08 08:56] LABS: Basophils Percent Auto 0.5 % (0-2); Eosinophils Absolute Auto 0.2 X10*3/uL (0.0-0.4); Eosinophils Percent Auto 1.8 % (0-4); Hematocrit 45.1 % (42.0-52.0); Hemoglobin 14.9 g/dl (14.0-18.0); Imm Gran Abs Auto 0.03 X10*3/uL (0.00-0.03); Imm Gran Pct Auto 0.3 % (0.0-0.4); Lymphocytes Absolute Auto 1.8 X10*3/uL (1.2-4.9); Lymphocytes Percent Auto 19.9 % (20-40); Mean Corpuscular Hemoglobin 29.3 pg (27.0-33.0); Mean Corpuscular Volume 88.6 fL (80.0-98.0); Mean Platelet Volume 10.3 fL (9.4-12.4); Monocytes Absolute Auto 0.8 X10*3/uL (0.1-1.2); Monocytes Percent Auto 9.4 % (2-11); Neutrophils Percent Auto 68.1 % (45-73); Platelet Count 203 X10*3/uL (160-400); Red Blood Count 5.09 X10*6/uL (4.60-5.80); Red Cell Distribution Width 12.3 % (11.0-16.0); White Blood Count 8.8 X10*3/uL (4.8-10.8)
[2022-01-08 09:24] LABS: Anion Gap 16 (12-20); Blood Urea Nitrogen 17 mg/dL (9-16); Calcium 9.1 mg/dL (8.4-10.2); Carbon Dioxide 28 mmol/L (22-29); Chloride 104 mmol/L (96-108); Creatinine Clr Calc Pharmacy 81.7; Estimated Glomerular Filt Rate > 60; Glucose Random 98 mg/dL (60-115); Potassium 4.5 mmol/L (3.3-5.1); Sodium 143 mmol/L (135-145)
[2022-01-08 11:25] VITALS: BP 122/72; PULSE 54; RESP 18; TEMP 36.9; O2SAT 98
--- NOTE | 2022-01-08 13:01 | MHC.CM.PN ---
pt dcd home no skilled servceis ordered by
--- NOTE | 2022-01-08 13:02 | PM.DS ---
DS: Providers Provider Date of Service: 01/08/22 Date of admission: 01/06/22 22:37 Primary care physician: Unknown Physician Consults: 01/06/22 22:38 Consult to Urology Routine Consulting Provider: Tanya Sarmiento Reason for consultation: obstructing calculus with left sided hydronephrosis Has provider been notified: No DS: Diagnosis Discharge Diagnosis (1) Calculus of kidney: Status: Acute (2) Pyelonephritis: Status: Acute (3) Obstructive uropathy: Status: Acute (4) Hydronephrosis: Status: Acute DS: Summary Hospital Course Hospital Course: This is a 56-year-old male with past medical history of HLD who came into the hospital on 01/06 with worsening left flank pain. Patient's imaging with concerning for obstructing calculus of the left ureterovesical junction and hydronephrosis. Patient was admitted to the hospital with urology consult. Patient was made NPO, treated with IV fluids, patient was also treated for possible pyelonephritis with IV antibiotics. Patient symptoms significantly improved with a no recurrent pain on day 2, urology evaluated patient, no indication for uteroscopy as pain resolved w likely passing of stone. UA -ve for infection, Urine cultures -ve. no indication for abx on discharge, will discharge pt on flomax, oxy prn for pain and recommended to increase hydration. If pain returns , please return to ed Time Spent with Patient Time attestation: Total time spent providing and/or coordinating discharge services: Discharge coordination time: Greater than 30 minutes Quality: Safe Use of Opioids Does Pt have an Active Cancer Diagnosis on the Problem List?: No Quality: Stroke Does the patient have a stroke diagnosis?: No Physical Exam Vital Signs: Vital Signs: Last Vital Signs Temp 98.4 F 01/08/22 11:25 Pulse 54 01/08/22 11:25 Resp 18 01/08/22 11:25 BP 122/72 01/08/22 11:25 Pulse Ox 98 01/08/22 11:25 O2 Del Method 01/08/22 11:25 BMI result Body Mass Index 26.4 DS: Data Data Completed and Pending Labs on day of discharge: Laboratory Results - last 24 hr 01/08/22 01/08/22 08:11 08:11 WBC 8.8 RBC 5.09 Hgb 14.9 Hct 45.1 MCV 88.6 MCH 29.3 MCHC 33.0 RDW 12.3 Plt Count 203 MPV 10.3 Immature Gran % (Auto) 0.3 Neut % (Auto) 68.1 Lymph % (Auto) 19.9 L [place] % (Auto) 9.4 Eos % (Auto) 1.8 Baso % (Auto) 0.5 Lymph # (Auto) 1.8 [place] # (Auto) 0.8 Eos # (Auto) 0.2 Baso # (Auto) 0.0 Abs Immat Gran (auto) 0.03 Absolute Neuts (auto) 6.0 Absolute Nucleated RBC 0.000 Nucleated RBC % (auto) 0.0 Sodium 143 Potassium 4.5 Chloride 104 Carbon Dioxide 28 Anion Gap 16 BUN 17 H Creatinine 1.10 Estim Creat Clear Calc 81.7 Estimated GFR > 60 Random Glucose 98 Calcium 9.1 D Discharge Plan Discharge Anticipated Discharge Date/Time: 01/08/22 12:56 Patient Disposition: Home, Self-Care Discharge Diagnosis: Obstructive uropathy Referrals: Physician,Unknown J [Primary Care Provider] - 1 Week Discharge Medications: New oxycodone 5 mg capsule 5 mg PO BID PRN (Reason: pain (scale score 7-10)) Qty: 10 0RF Continued tamsulosin 0.4 mg capsule 0.4 mg PO BEDTIME 14 Days Qty: 7 0RF Rx Instructions: addition to tamsulosin sent by [facility], total of 14 days daily of tamsulosin prednisone 20 mg tablet 20 mg PO DAILY 5 Days Qty: 5 0RF simvastatin 20 mg tablet 1 tab PO DAILY omeprazole 20 mg capsule,delayed release(DR/EC) 1 cap PO DAILY@0630 Discontinued oxycodone-acetaminophen [Percocet] 5-325 mg tablet 1 tab PO Q6H PRN (Reason: pain) Qty: 20 0RF Rx Instructions: Partial Fill upon patient request. Discharge Orders: Discharge Order (Routine); Ordered 01/08/22 Ordered By: Duane Perez Activity on Discharge: As tolerated Stand Alone Forms: Patient Portal Discharge page Care Plan Goals: You were admitted to the hospital for obstructive kidney stone. Pain has resolved. You were evaluated by urology. Continue to hydrate well. pain medication as needed Health Concerns: If pain returns, please return to hospital Plan of Treatment: Discharge home on pain medications Assessment: Resolution of pain continue to monitor symptoms if reoccur, please return to ED continuetamsulosin
== END 2022-01-08 14:25 | disposition home or self-care (01) | DRG 690 ==
LOC: HO.ED 22:28 → HO.EDOVER 22:56 → HO.S3 01-07 13:02
PROVIDERS: Nurse Practitioner Family; Admitting Provider Student in an Organized Health Care Education/Training Program; Emergency Provider Emergency Medicine; PCP Internal Medicine; Visit Provider Internal Medicine
DX: N13.6 Pyonephrosis (principal); E78.2 Mixed hyperlipidemia; Z20.822 Contact with and (suspected) exposure to COVID-19; Z79.899 Other long term (current) drug therapy
CPT/HCPCS: 36415; 74176; 80048; 80076; 81001; 83690; 85025; 87635; 99285; J0696; J1885; J2270; J2405

== ENCOUNTER 2022-01-13 15:04 | Outpatient (REF) | payer OTHER, SELFPAY ==
[2022-01-18 20:12] LABS: Stone Source KIDNEY STONE
== END 2022-01-13 15:05 | disposition home or self-care (01) ==
LOC: HO.LAB 15:04
PROVIDERS: Urology; Visit Provider Urology
DX: N20.0 Calculus of kidney (principal)
CPT/HCPCS: 82365; 88300; 88307

== ENCOUNTER 2022-02-11 09:49 | Day surgery (SDC) | payer OTHER, SELFPAY ==
--- NOTE | 2022-02-10 10:48 | HO.ANESPROP2 ---
Documented by User: Meseret Pichardo NP 02/10/22 10:49 HPI - Anesthesia Eval Consult details Narrative: 56yo M for Upper Endoscopy PMFSH Active Problems Active Problems: All Active Problems (Updated 01/14/22 @ 00:03 by Shu Oviedo) Screening PSA (prostate specific antigen) (Acute) Past Medical History Medical History Calculus of kidney Hydronephrosis Hyperlipidemia Obstructive uropathy Surgical History Surgical History History of hernia surgery History of right knee surgery Social History Social History Household Members: Significant Other Household Members Other:: 2 Housing: House Do you presently have visiting nurse or other home services: Yes Patient Tobacco Use Status: Never used Tobacco Use of substances other than those prescribed or required for medical reasons: No Are you DNR?: No Advance Directives: No Advance Directives Information Provided: Yes service: No Meds Allergies Allergy/AdvReac Type Severity Reaction Status Date / Time No Known Allergies Allergy Verified 01/13/22 14:19 [No Known Allergies*] Home Medications Medication Instructions Recorded Confirmed Last Taken Type simvastatin 20 mg tablet 1 tab PO DAILY 01/06/22 02/11/22 01/05/22 History 20 mg Exam Exam Date and Time: February 10, 2022 1048 Pertinent Lab Results Pertinent Lab Results: Laboratory Tests 01/08/22 01/08/22 08:11 08:11 WBC 8.8 Hgb 14.9 Hct 45.1 Plt Count 203 Sodium 143 Potassium 4.5 Chloride 104 Carbon Dioxide 28 BUN 17 H Creatinine 1.10 Assessment and Plan Assessment Anesthesia Assessment: Chart Reviewed Documented by User: Randy Garcia MD 02/11/22 11:40 PMFSH Past Medical History Medical History Calculus of kidney Hydronephrosis Hyperlipidemia Obstructive uropathy Family History Family history of problems with anesthesia: No Surgical History Surgical History History of hernia surgery History of right knee surgery History of Problems with Anesthesia: No Social History Social History Household Members: Significant Other Household Members Other:: 2 Housing: House Do you presently have visiting nurse or other home services: Yes Patient Tobacco Use Status: Never used Tobacco Use of substances other than those prescribed or required for medical reasons: No Are you DNR?: No Advance Directives: No Advance Directives Information Provided: Yes service: No Meds Allergies Allergy/AdvReac Type Severity Reaction Status Date / Time No Known Allergies Allergy Verified 01/13/22 14:19 [No Known Allergies*] Home Medications Medication Instructions Recorded Confirmed Last Taken Type simvastatin 20 mg tablet 1 tab PO DAILY 01/06/22 02/11/22 01/05/22 History 20 mg Exam Airway Mallampati Class: II TM Dist: >3cm Neck ROM: Full Loose/Missing/Broken Teeth: No Heart: [id number] Lungs: cta b/l Assessment and Plan Assessment Anesthesia Assessment: Anesthesia Plan Discussed Final Anesthetic Review Family History of Problems with Anesthesia: No History of Problems with Anesthesia: No NPO: Yes ASA Class: II Final Preanesthetic Review: No Changes in Pt Med Stat, Meds/Allgs Chart Reviewed, Consent Obtained/Reviewed and Anes Risks/Benef Reviewed Patient Risk: Intermediate Procedure Risk: Intermediate Assessment/Block/Sedation in SS: Assess/Block/Sedation-SS Anesthetic Plan Anesthetic Plan: MAC: and Agree w/ Assess. and Plan Disposition: Standard PACU
[2022-02-11 10:45] VITALS: BMI 26.2
[2022-02-11 10:55] VITALS: BP 136/73; PULSE 50; RESP 16; TEMP 36.2; O2SAT 99
[2022-02-11] MEDS: Lactated Ringers 1,000 ML 100 ML IVCONT (11:09)
--- NOTE | 2022-02-11 11:43 | MHC.SHP ---
Pre-Procedural Eval Section A Date of Service: 02/11/22 The patient is an INPATIENT: No Changes since office visit: No Cold of Flu in the past 2 weeks, No New Medical Problems, No Changes in Medication and No Patient answered all questions The History & Physical has been completed within 30 days and I have reviewed it.: Yes Section B Chief Complaint: Epigastric pain Allergies: Allergies Allergy/AdvReac Type Severity Reaction Status Date / Time No Known Allergies Allergy Verified 01/13/22 14:19 [No Known Allergies*] Plan I have reviewed the history and physical and performed a pertinent physical examination on my patient. No changes have occurred unless specified.
--- NOTE | 2022-02-11 12:00 | P.BOP_ITS ---
Brief Operative Note Date of Service: 02/11/22 Pre-op diagnosis: epigastric pain Post-op diagnosis: same Procedure: EGD Surgeon: Mukund Candelario Was an Information Systems Technician used for this Procedure?: No Estimated blood loss (mL): 2 Pathology: other Condition: stable Disposition: PACU
[2022-02-11 12:05] VITALS: BP 111/67; PULSE 54; RESP 16; TEMP 36.2; O2SAT 96
[2022-02-11 12:20] VITALS: BP 112/67; PULSE 51; RESP 16; TEMP 36.1; O2SAT 97
[2022-02-11 12:35] VITALS: BP 122/70; PULSE 49; RESP 16; TEMP 36.7; O2SAT 97
--- NOTE | 2022-02-11 23:02 | OP_ITS ---
SURGEON: Mukund Candelario MD INDICATIONS: Epigastric pain. PREOPERATIVE DIAGNOSIS: POSTOPERATIVE DIAGNOSIS: PROCEDURE PERFORMED: Upper endoscopy with biopsy. ESTIMATED BLOOD LOSS: COMPLICATIONS: ANESTHESIA: Monitored anesthesia care. ASSISTANTS: SPECIMENS: DESCRIPTION OF PROCEDURE: Date 02/11/22 History and physical performed. The risks and benefits of the procedure were explained to the patient. Informed consent was obtained. The patient was placed in the left lateral decubitus position. The Olympus video gastroscope was introduced into the esophagus, stomach, and duodenum. Examination was performed. The scope was removed. He tolerated the procedure well and was taken to recovery area in stable condition. FINDINGS: Esophagus: The esophagus was normal. Biopsies were obtained from the EG junction. Stomach: The stomach was normal. Antral biopsies were obtained to evaluate for H pylori. Duodenum: The bulb and second portion were normal. Biopsies were obtained from the second portion. IMPRESSION: Normal upper endoscopy. RECOMMENDATION: Follow up the biopsy results. Mukund Candelario MD BC/MODL / [id number] MTDD
== END 2022-02-11 13:31 | disposition home or self-care (01) ==
PROVIDERS: PCP Internal Medicine; Visit Provider Internal Medicine Gastroenterology
PROC: 0DJ08ZZ Inspection of Upper Intestinal Tract, Via Natural or Artificial Opening Endoscopic (ICD-10-PCS; CPT 43235; principal; 2022-02-11 10:40)
DX: R10.13 Epigastric pain (principal); Z80.0 Family history of malignant neoplasm of digestive organs; E78.00 Pure hypercholesterolemia, unspecified; Z87.442 Personal history of urinary calculi; Z79.899 Other long term (current) drug therapy
CPT/HCPCS: 43239; 88305; 88342

== ENCOUNTER 2022-02-24 08:01 | Outpatient (REF) | payer OTHER, SELFPAY ==
--- NOTE | ~2022-02-24 | US_ITS ---
EXAMINATION: US RETROPERITONEAL LIMITED (RENAL ONLY) CLINICAL INFORMATION: Unspecified hydronephrosis. COMPARISON: CT abdomen and pelvis 01/06/2022. Renal ultrasound 03/13/2019 and 04/24/2018. TECHNIQUE: Real-time imaging of the kidneys. FINDINGS: RIGHT KIDNEY: 11.8 x 5.6 x 5.1 cm (SAG x AP x TRV). The kidney is normal in size, contour, and echogenicity. Renal cortical thickness is normal. There are 3 stones in the lower pole largest measuring 3 mm. Mild fullness of the right renal pelvis. No hydronephrosis. No focal parenchymal lesions. LEFT KIDNEY: 11.9 x 5.2 x 4.9 cm (SAG x AP x TRV). The kidney is normal in size, contour, and echogenicity. Renal cortical thickness is normal. No calculi or focal parenchymal lesions. No hydronephrosis. Left hydronephrosis on CT 01/06/2022 no longer seen. US/US renal BI IMPRESSION: Right renal stones. Mild fullness of the right renal pelvis. No hydronephrosis.
== END 2022-02-24 08:02 | disposition home or self-care (01) ==
LOC: HO.US 08:01
PROVIDERS: PCP Internal Medicine; Visit Provider Urology
DX: N20.0 Calculus of kidney (principal); N13.30 Unspecified hydronephrosis
CPT/HCPCS: 76775

== ENCOUNTER → 2022-03-16 15:29 | Outpatient (BNVA) | payer OTHER, SELFPAY | PROVIDERS: PCP Internal Medicine; Visit Provider Urology | DX: N20.0 Calculus of kidney (principal) ==

== ENCOUNTER 2022-09-15 07:47 | Outpatient (REF) | payer OTHER, SELFPAY ==
--- NOTE | ~2022-09-15 | US_ITS ---
EXAMINATION: US RETROPERITONEAL LIMITED (RENAL ONLY) CLINICAL INFORMATION: Calculus of kidney. COMPARISON: Renal ultrasound 02/24/2022 and 03/13/2019. CT abdomen and pelvis 01/06/2022. TECHNIQUE: Real-time imaging of the kidneys. Limited visualization due to bowel gas. FINDINGS: RIGHT KIDNEY: 11.4 x 6.2 x 6.0 cm (SAG x AP x TRV). Renal cortical thickness is normal. Four (4) echogenic foci, largest 3 mm, lower and mid pole right kidney, characteristic of calculi. No hydronephrosis. LEFT KIDNEY: 11.9 x 6.6 x 5.0 cm (SAG x AP x TRV). No hydronephrosis. No renal calculi. Limited visualization. Renal cortical thickness is normal. US/US renal BI IMPRESSION: Right renal calculi. No hydronephrosis.
== END 2022-09-15 07:48 | disposition home or self-care (01) ==
LOC: HO.US 07:47
PROVIDERS: Visit Provider Urology
DX: N20.0 Calculus of kidney (principal)
CPT/HCPCS: 76775

== ENCOUNTER → 2022-09-16 09:51 | Outpatient (BNVA) | payer OTHER, SELFPAY | PROVIDERS: Visit Provider Urology ==

== ENCOUNTER 2023-10-08 15:54 | Emergency (ER) | payer OTHER, SELFPAY ==
--- NOTE | ~2023-10-08 | CT_ITS ---
EXAMINATION: Unenhanced CT the head; IV contrast enhanced CT angiography of the head and neck; delayed IV contrast-enhanced CT the head CLINICAL INFORMATION: Intermittent bilateral loss of vision. COMPARISON: MRI brain 03/07/2019 TECHNIQUE: Routine unenhanced CT the head with multiple coronal and sagittal reformatted images; IV contrast enhanced CT angiography of the head and neck with multiple 3-D reformatted angiographic thick section MIPS images processed on the technologist workstation under concurrent supervision; delayed IV contrast-enhanced CT the head. Vascular stenoses are made with reference to the NASCET criteria less otherwise specified. This CT examination was performed using dose optimization techniques as appropriate, variously including the following: *Automated exposure control *Adjustment of mA and/or kV according to patient size (this includes techniques or standardized protocols for targeted exams where dose is matched to indication/reason for exam; i.e. extremities or head) *Use of iterative reconstruction technique Intravenous Contrast: Omnipaque 350 70 mL DLP: 2487 mGy-cm FINDINGS: Unenhanced and IV contrast-enhanced CT the head: No intracranial hemorrhage, tumors or acute infarcts identified. The ventricles and sulci are normal in size and configuration. No focal parenchymal lesions of the brain. No abnormal extra-axial fluid collections. The orbits and globes are normal in appearance. No significant opacification of the visualized paranasal sinuses, mastoid air cells and middle ear cavities. No abnormal enhancement of the brain parenchyma. Normal intraluminal opacification of the major intracranial dural sinuses. CT angiography neck: The visualized transverse aorta is normal in caliber. The carotid bulbs are patent. The left vertebral artery is dominant. No occlusions, stenoses or dissections noted within the cervical carotid and vertebral artery systems. CT angiography head: Minimal nonocclusive eccentric focal calcific plaque is present in the cavernous portion of the right internal carotid artery. Anterior communicating artery is noted. No intercranial stenoses, occlusions or aneurysms visualized. Visualized lung apices are clear. Normal appearance of the thyroid. No cervical lymphadenopathy. Normal appearance of the parotid, submandibular and sublingual glands. Partial visualization of mild 7 moderate posterior broad-based disc-osteophyte complexes at C5-C6 and C6-C7. CT/CT angio head neck IMPRESSION: Unenhanced and IV contrast-enhanced CT the head: *No intracranial abnormalities. No acute infarcts or intracranial hemorrhage. CT angiography neck: *Normal. Patent cervical carotid and vertebral artery systems. CT angiography head: *Minimal focal nonocclusive calcific atherosclerotic plaque within the cavernous portion of the right internal carotid arteries; otherwise, negative CT angiography of the head. No intracranial large vessel occlusions. *Mild-moderate multilevel chronic spondylosis of the cervical spine.
[2023-10-08 15:55] VITALS: BP 173/89; PULSE 61; RESP 18; TEMP 36.4; O2SAT 100; BMI 22.4
--- NOTE | 2023-10-08 16:10 | ED.GENADULT ---
HPI - General Adult General Chief complaint: Eye Problems Stated complaint: vision problems Time Seen by Provider: 10/08/23 16:08 Source: patient Mode of arrival: ambulatory Limitations: no limitations History of Present Illness ED Provider: Batool Auguste APRN HPI narrative: 57 yo male with history of HLD presents the ER with complaints of 1 week of intermittent visual field blurriness. Patient reports that he has 30 minute episodes where part of his peripheral visual field is blurry. These episodes are not associated with any eye pain, dizziness, blurry vision, flashing lights or any other associated symptoms. After 1 episode he did have a very mild headache. These episodes may occur with rest or activity. There does not seem to be any preceding cause per patient. Of note, the patient has an episode of visual loss proximally 5 years ago. He was seen by Neurology and had CT imaging but no clear diagnosis for symptoms. He was recommended take an aspirin daily after this. He took it for approximately 2 years and then discontinued it. He did recently start taking it. He is followed by Dr. Reese as well and see him about every 3-6 months with reportedly normal exams. At this time he has no visual disturbances Related Data Home Medications ?Medication ?Instructions ?Recorded ?Confirmed simvastatin 20 mg tablet 1 tab PO DAILY 01/06/22 03/16/22 Previous Rx's ?Medication ?Instructions ?Recorded pyridoxine (vitamin B6) 100 mg 100 mg PO DAILY #90 tabs 03/16/22 tablet Allergies Allergy/AdvReac Type Severity Reaction Status Date / Time No Known Allergies Allergy Verified 10/08/23 15:57 [No Known Allergies*] Review of Systems Review of Systems: Yes all other systems are reviewed and are negative Constitutional: Constitutional: Reports no additional constitutional complaints, Denies body ache(s), Denies chills, Denies fever(s), Denies headache(s) and Denies weakness Eyes: Eyes: Reports no additional eye complaints, Reports change in vision, Denies diplopia, Denies eye discharge, Denies floaters, Denies irritation, Denies itchy eyes, Denies eye pain, Denies seeing flashes and Denies photophobia ENT: Reports system reviewed and no additional complaints, except as documented, Denies dizziness, Denies headache(s), Denies nasal congestion, Denies nasal discharge and Denies neck pain Cardiovascular: Cardiovascular: Reports no additional cardiovascular complaints, Denies chest pain, Denies leg edema and Denies dyspnea Respiratory: Respiratory: Reports no additional respiratory complaints, Denies cough and Denies dyspnea Gastrointestinal: Gastrointestinal: Reports no additional gastrointestinal complaints, Denies abdominal pain, Denies diarrhea, Denies nausea and Denies vomiting Genitourinary: Genitourinary: Denies urinary incontinence Musculoskeletal: Musculoskeletal: Reports no additional musculoskeletal complaints, Denies back pain, Denies arthralgias, Denies joint swelling, Denies neck pain, Denies numbness and Denies tingling Integumentary/Breasts: Skin/Breast: Reports system reviewed and no additional complaints, except as docu and Denies rash Neurologic: Reports system reviewed and no additional complaints, except as documented, Denies Abnormal speech present, Denies dizziness, Denies headache(s), Denies numbness, Denies tingling and Denies weakness Allergic/Immunologic: Allergic/Immunologic: Denies itchy eyes PMFSH Past Medical History Attestation statement: The following information was validated with the patient. Source: old records reviewed and nursing notes reviewed Medical History Hydronephrosis Obstructive uropathy Hyperlipidemia Calculus of kidney Surgical History History of hernia surgery History of right knee surgery Social History Social History Household Members: Significant Other Household Members Other:: 2 Housing: House Do you presently have visiting nurse or other home services: Yes Patient Tobacco Use Status: Never used Tobacco Advance Directives: No Advance Directives Information Provided: No Do you have a plan to hurt others: No Plan service: No Physical Exam ED Vital Signs: Vital Signs - 24 hr 10/08/23 15:55 10/08/23 18:27 10/08/23 18:55 Temperature 97.6 F 98.4 F Pulse Rate 61 74 Respiratory Rate 18 16 Blood Pressure 173/89 H 122/76 122/76 Pulse Oximetry 100 98 Oxygen Delivery Method Room Air Room Air BMI result Body Mass Index 22.4 Const General: cooperative, healthy appearing, comfortable and no acute distress Orientation/consciousness: patient oriented x3 Limitations: no limitations HENAK Head: Yes normal to inspection Ears: hearing grossly normal bilaterally and TM's normal bilaterally General nose exam: Normal external nose present Face and sinus: Yes normal facial exam Mouth: Normal oral and palatal mucosa present Throat: Yes posterior oropharynx normal, Yes tonsils normal and Yes uvula midline Eyes General: appearance normal, both eyes and all related structures Visual Laurent: normal visual laurent by confrontation Alignment and Position: alignment normal Periorbital: periorbital findings normal Eyelids: Yes eyelids normal Conjunctivae: conjunctivae normal Sclerae: sclerae normal Corneas: corneas normal Pupils: Equal, round and reactive pupils present EOM: EOMs intact bilaterally Direct Ophthalmoscopy: normal light reflex, no photophobia and No photophobia Neck Neck: Yes normal visual inspection, Yes full ROM and Yes no lymphadenopathy Chest Chest palpation & inspection: normal inspection of the chest Resp Effort & Inspection: normal respiratory effort Auscultation: clear to auscultation bilaterally Cardio Rate: regular rate Rhythm: regular rhythm Peripheral pulses: Peripheral pulses 2+ throughout GI Inspection: Yes normal to inspection Palpation (GI): Soft to palpation and nontender Auscultation: normal bowel sounds Back/Spine/Pelvis Thoracic/Lumbar Spine: thoracic and lumbar spine normal to inspection Skin General skin exam: no rashes or lesions noted Neuro General: patient oriented x3, moves all extremities, no focal motor deficits and normal sensation to monofilament Cranial nerves: Yes CN's II-XII intact bilaterally, Yes Equal, round and reactive pupils present, Yes Bilaterally intact EOM present, Yes Nystagmus not present, Yes Normal facial strength present and Yes Midline tongue present Cognition (Neuro): normal cognition Speech: No Abnormal speech present Gait exam (Neuro): Normal gait present Motor exam (neuro): 5/5 motor strength present throughout Sensory Exam: Normal double simultaneous stimulation for sensation Extrem General: Yes normal to inspection Course Course Course Narrative: RME: DOne by PATO Curtis. 57-year-old male brought to the ED for 1 week of intermittent bilateral visual disturbance described as kaleidoscope. Patient denies any slurred speech, facial droop, nausea vomiting, dizziness, headache, weakness, dizziness, loss of vision, or any other concerning symptoms. Patient states last have this episode last night. Head CT labs ordered Reevaluation(s) Reevaluation #1: 1830-Initial BP elevated. Repeat without intervention normal. Sign out to David PA pending CTA images Reevaluation #2: CTA negative for signs of large exclusive emboli or stroke. negative for eye stroke. Patient is asymptomatic. Patient has follow-up with his neurologist and eye doctor this week. Patient explained worrisome signs and informed to return to the ED immediately. Presently patient states vision is normal. NIH Score 0. Time: 18:45 Medications Administered Discontinued Medications Generic Name Dose Route Start Last Admin Trade Name Bola PRN Reason Stop Dose Admin Iohexol 100 ml 10/08/23 17:22 10/08/23 17:23 Iohexol 350 Mg/Ml 100 Ml Infus..Btl IV 10/08/23 17:23 70 ml ONCE ONE Administration Medical Decision Making Medical Decision Making [facility] Narrative: 57 yo male with history of HLD presents the ER with complaints of 1 week of intermittent visual field blurriness. Patient reports that he has 30 minute episodes where part of his peripheral visual field is blurry. These episodes are not associated with any eye pain, dizziness, blurry vision, flashing lights or any other associated symptoms. After 1 episode he did have a very mild headache. These episodes may occur with rest or activity. There does not seem to be any preceding cause per patient. Of note, the patient has an episode of visual loss proximally 5 years ago. He was seen by Neurology and had CT imaging but no clear diagnosis for symptoms. He was recommended take an aspirin daily after this. He took it for approximately 2 years and then discontinued it. He did recently start taking it. He is followed by Dr. Reese as well and see him about every 3-6 months with reportedly normal exams. No visual complaints at this time. Normal neuro exam with no focal deficits. Will need labs, CTA, EKG, visual acuity Differential Diagnosis Differential Diagnoses: The differential diagnosis associated with the presentation includes Doubt acute glaucoma with no reports of associated eye pain or pressure Ocular migraine Low suspicion for LVO, carotid dissection, vascular event Afib Admission/Observation Consideration of admission/observation: Escalation of care including admission/observation considered Lab Data [facility] Lab Attestation statement: I reviewed the patient's lab results. 10/08/23 16:20 10/08/23 16:23 Labs: Lab Results 10/08/23 10/08/23 Range/Units 16:20 16:23 WBC 8.1 (4.8-10.8) X10*3/uL RBC 5.33 (4.60-5.80) X10*6/uL Hgb 16.2 (14.0-18.0) g/dl Hct 46.2 (42.0-52.0) % MCV 86.7 (80.0-98.0) fL MCH 30.4 (27.0-33.0) pg MCHC 35.1 (31.0-36.0) g/dl RDW 12.8 (11.0-16.0) % Plt Count 226 (160-400) X10*3/uL MPV 10.1 (9.4-12.4) fL Immature Gran % (Auto) 0.5 H (0.0-0.4) % Neut % (Auto) 59.3 (45-73) % Lymph % (Auto) 28.2 (20-40) % [place] % (Auto) 10.5 (2-11) % Eos % (Auto) 1.1 (0-4) % Baso % (Auto) 0.4 (0-2) % Lymph # (Auto) 2.3 (1.2-4.9) X10*3/uL [place] # (Auto) 0.9 (0.1-1.2) X10*3/uL Eos # (Auto) 0.1 (0.0-0.4) X10*3/uL Baso # (Auto) 0.0 (0.0-0.2) X10*3/uL Abs Immat Gran (auto) 0.04 H (0.00-0.03) X10*3/uL Absolute Neuts (auto) 4.8 (2.0-8.3) x10*3/uL Absolute Nucleated RBC 0.000 (0.0-0.012) X10*3/uL Nucleated RBC % (auto) 0.0 (0.0-0.2) /100WBC Hold Purple Top SEE NOTE Sodium 140 (135-145) mmol/L Potassium 4.5 (3.3-5.1) mmol/L Chloride 103 (96-108) mmol/L Carbon Dioxide 28 (22-29) mmol/L Anion Gap 14 (12-20) BUN 18 H (9-16) mg/dL Creatinine 1.22 (0.5-1.4) mg/dL Estim Creat Clear Calc 72.4 Estimated GFR > 60 Random Glucose 107 (60-115) mg/dL Calcium 9.6 (8.4-10.2) mg/dL Total Bilirubin 0.8 (0.0-1.0) mg/dL AST 20 (5-37) U/L ALT 16 (0-40) U/L Alkaline Phosphatase 79 (39-117) U/L Total Protein 7.1 (6.5-8.0) g/dL Albumin 4.4 (3.5-5.0) g/dL Independent Interpretation I performed an independent interpretation of an: EKG and CT Scan Interpretation: I independently viewed the EKG which shows sinus bradycardia with a rate of 56, normal NE, normal QRS, normal QT Radiology Impression Discussion of test interpretation with radiology: I have reviewed the radiologist's reading. Independent Historian Clinical information obtained from an independent historian. History obtained from or confirmed by: Spouse Discharge Plan Discharge Clinical Impression: Visual changes Patient Disposition: Home, Self-Care Instructions: Blurred Vision (ED) Additional Instructions: Your blood work and imaging today are reassuring. Your EKG shows no abnormal rhythm Consider taking 81 mg of aspirin daily Follow-up with Dr. Reese outpatient as well as your primary care doctor. Return for any worsening symptoms. CT/CT angio head neck IMPRESSION: Unenhanced and IV contrast-enhanced CT the head: *No intracranial abnormalities. No acute infarcts or intracranial hemorrhage. CT angiography neck: *Normal. Patent cervical carotid and vertebral artery systems. CT angiography head: *Minimal focal nonocclusive calcific atherosclerotic plaque within the cavernous portion of the right internal carotid arteries; otherwise, negative CT angiography of the head. No intracranial large vessel occlusions. *Mild-moderate multilevel chronic spondylosis of the cervical spine. Prescriptions: No Action simvastatin 20 mg tablet 1 tab PO DAILY pyridoxine (vitamin B6) 100 mg tablet 100 mg PO DAILY Qty: 90 3RF Referrals: Henrry Reese [Physician] - 1 week Harinder Fournier MD [Primary Care Provider] - 1 week Interventions: ED Discharge Assessment Last Done: 10/08/23 18:55 Discharge Date/Time: 10/08/23 18:56 Print Language: Beninese
--- NOTE | 2023-10-08 16:39 | ECG_ITS ---
Test Reason : AFIB EVAL, VISION CHANGES Blood Pressure : / mmHG Vent. Rate : 056 BPM Atrial Rate : 056 BPM P-R Int : 152 ms QRS Dur : 086 ms QT Int : 418 ms P-R-T Axes : 029 -17 008 degrees QTc Int : 403 ms Sinus bradycardia Otherwise normal ECG When compared with ECG of 06-MAR-2019 06:27, No significant change was found Referred By: Batool Auguste Electronically Signed By:Anibal Mandujano
[2023-10-08 16:48] LABS: Alanine Aminotransferase 16 U/L (0-40); Albumin Level 4.4 g/dL (3.5-5.0); Alkaline Phosphatase 79 U/L (39-117); Anion Gap 14 (12-20); Aspartate Amino Transferase 20 U/L (5-37); Bilirubin Total 0.8 mg/dL (0.0-1.0); Blood Urea Nitrogen 18 mg/dL (9-16); Calcium 9.6 mg/dL (8.4-10.2); Carbon Dioxide 28 mmol/L (22-29); Chloride 103 mmol/L (96-108); Creatinine Clr Calc Pharmacy 72.4; Estimated Glomerular Filt Rate > 60; Glucose Random 107 mg/dL (60-115); Potassium 4.5 mmol/L (3.3-5.1); Sodium 140 mmol/L (135-145); Total Protein 7.1 g/dL (6.5-8.0)
[2023-10-08 16:52] LABS: MANUAL DIFF FLAG NO
[2023-10-08 16:53] LABS: Basophils Percent Auto 0.4 % (0-2); Eosinophils Absolute Auto 0.1 X10*3/uL (0.0-0.4); Eosinophils Percent Auto 1.1 % (0-4); Hematocrit 46.2 % (42.0-52.0); Hemoglobin 16.2 g/dl (14.0-18.0); Imm Gran Abs Auto 0.04 X10*3/uL (0.00-0.03); Imm Gran Pct Auto 0.5 % (0.0-0.4); Lymphocytes Absolute Auto 2.3 X10*3/uL (1.2-4.9); Lymphocytes Percent Auto 28.2 % (20-40); Mean Corpuscular HGB Conc 35.1 g/dl (31.0-36.0); Mean Corpuscular Hemoglobin 30.4 pg (27.0-33.0); Mean Corpuscular Volume 86.7 fL (80.0-98.0); Mean Platelet Volume 10.1 fL (9.4-12.4); Monocytes Absolute Auto 0.9 X10*3/uL (0.1-1.2); Monocytes Percent Auto 10.5 % (2-11); Neutrophils Absolute Auto 4.8 x10*3/uL (2.0-8.3); Neutrophils Percent Auto 59.3 % (45-73); Platelet Count 226 X10*3/uL (160-400); Red Blood Count 5.33 X10*6/uL (4.60-5.80); Red Cell Distribution Width 12.8 % (11.0-16.0); White Blood Count 8.1 X10*3/uL (4.8-10.8)
[2023-10-08] MEDS: iohexoL 350 MG/ML 100 ML INFUS..BTL IV (17:23)
[2023-10-08 18:27] VITALS: BP 122/76
[2023-10-08 18:55] VITALS: BP 122/76; PULSE 74; RESP 16; TEMP 36.9; O2SAT 98
== END 2023-10-08 18:56 | disposition home or self-care (01) ==
PROVIDERS: Emergency Medicine; Nurse Practitioner Family; Physician Assistant; Emergency Provider Emergency Medicine; PCP Internal Medicine
DX: H53.8 Other visual disturbances (principal); R51.9 Headache, unspecified; R00.1 Bradycardia, unspecified; Z79.899 Other long term (current) drug therapy
CPT/HCPCS: 36415; 70496; 70498; 80053; 85025; 93005; 99284; Q9967

== ENCOUNTER → 2023-10-08 16:39 | Outpatient (BNV) | payer OTHER, SELFPAY | PROVIDERS: Emergency Provider Emergency Medicine; PCP Internal Medicine; Visit Provider Internal Medicine Cardiovascular Disease | DX: R00.1 Bradycardia, unspecified (principal) | CPT/HCPCS: 93010 ==

== ENCOUNTER 2023-12-05 18:48 | Outpatient (REF) | payer OTHER, SELFPAY ==
--- NOTE | ~2023-12-05 | MR_ITS ---
EXAMINATION: MR BRAIN WITHOUT CONTRAST CLINICAL INFORMATION: Ocular migraines, microvascular disease. COMPARISON: None available. TECHNIQUE: MRI of the brain was obtained using routine sequences without contrast. Examination was performed on a Siemens 1.5 Phylicia magnet using standard sequences. FINDINGS: There is no diffusion restriction. There is no intracranial hemorrhage, acute infarction, mass effect, or edema. Ventricles, sulci, and cisterns are normal in size and configuration for patient age. No shift of midline. No abnormal hemosiderin deposition is identified. There are a few scattered punctate and minimally confluent foci of white matter T2 hyperintensity in the periventricular, subcortical, and hemispheric deep white matter, nonspecific. Midline structures appear normally formed. The pituitary gland appears normal. Posterior fossa structures appear normal. Cerebellar tonsils are appropriately located. Major flow voids are preserved within the skull base. The globes and orbital contents demonstrate no abnormalities. Paranasal sinuses are clear bilaterally. Nasal septum is midline without spur. The mastoids and tympanic cavities are normally aerated. Extracranial soft tissues demonstrate no abnormalities. No suspicious bone marrow changes are evident. Atlantoaxial joint is normally aligned. Mild degenerative changes. MR/MR head/brain wo con IMPRESSION: 1. No evidence of intracranial hemorrhage, acute infarction, mass effect, or edema. 2. There are a few bilateral scattered foci of punctate and minimally confluent white matter T2 hyperintensity in the supratentorial periventricular, subcortical, and hemispheric deep white matter. These are nonspecific and most likely represent minimal small vessel ischemic changes. These foci have also been described associated with migraine headaches. 3. Otherwise, normal MRI of the brain. Electronically signed by: Alf Schofield MD 01/04/2024 01:59 PM EDT
== END 2023-12-05 18:49 | disposition home or self-care (01) ==
LOC: HO.MRI 18:48
PROVIDERS: PCP Internal Medicine; Visit Provider Psychiatry & Neurology Neurology
DX: I67.89 Other cerebrovascular disease (principal)
CPT/HCPCS: 70551

== ENCOUNTER → 2023-12-05 19:00 | Outpatient (BNV) | payer OTHER, SELFPAY | PROVIDERS: PCP Internal Medicine; Visit Provider Radiology Diagnostic Radiology | DX: I67.89 Other cerebrovascular disease (principal) | CPT/HCPCS: 70551 ==

== ENCOUNTER 2023-12-12 12:01 | Outpatient (REF) | payer OTHER, SELFPAY ==
[2023-12-12 13:23] LABS: Erythrocyte Sedimentation Rate 2 MM/HR (0-15)
[2023-12-13 17:38] LABS: Lyme Abs Screen <0.90 index
[2023-12-13 22:43] LABS: Cardiolipin IgG Ab <2.0 GPL-U/mL; Cardiolipin IgM Ab 3.8 MPL-U/mL
[2023-12-15 22:53] LABS: PTT (LAC) Screen 32 sec (<=40)
[2023-12-18 23:43] LABS: Factor V Leiden NEGATIVE
== END 2023-12-12 12:02 | disposition home or self-care (01) ==
LOC: HO.LAB 12:01
PROVIDERS: PCP Internal Medicine; Visit Provider Psychiatry & Neurology Neurology
DX: I67.89 Other cerebrovascular disease (principal)
CPT/HCPCS: 36415; 81241; 85597; 85598; 85613; 85652; 85730; 86147; 86617; 86618